=== PATIENT | male | born 1960 | race Caucasian/White ===

== ENCOUNTER 2022-11-18 21:54 | Emergency (ER) | payer OTHER, SELFPAY ==
[2022-11-18 21:54] VITALS: BP 90/50; PULSE 71; RESP 14; O2SAT 98; BMI 25.0
--- NOTE | 2022-11-18 22:01 | CT_ITS ---
PROCEDURE INFORMATION: Exam: CTA Neck With Contrast Exam date and time: 11/18/2022 10:42 PM Age: 62 years old Clinical indication: Other: AMS; Additional info: AMS, found down TECHNIQUE: Imaging protocol: Computed tomographic angiography of the neck with contrast. 3D rendering (Not supervised by radiologist): MIP and/or 3D reconstructed images were created by the technologist. Radiation optimization: All CT scans at this facility use at least one of these dose optimization techniques: automated exposure control; mA and/or kV adjustment per patient size (includes targeted exams where dose is matched to clinical indication); or iterative reconstruction. Contrast material: ISOVUE; Contrast volume: 100 ml; Contrast route: INTRAVENOUS (IV); REPORTING DATA: Count of CT and Cardiac NM exams in prior 12 months: This patient has received 0 known CTs and 0 known cardiac nuclear medicine studies in the 12 months prior to the current study. COMPARISON: CT CERVICAL SPINE WO CON 11/18/2022 10:38 PM FINDINGS: Right common carotid artery: Prominent calcific plaque in the right carotid bulb. No significant stenosis or occlusion. No dissection. Right internal carotid artery: Moderate calcific plaque in proximal right ICA, with mild less than 50% stenosis by NASCET criteria. No occlusion or dissection. Right external carotid artery: No occlusion or stenosis of the origin. Left common carotid artery: Mild calcific plaque in left carotid bulb. No significant stenosis or occlusion. No dissection. Left internal carotid artery: [id number] calcific plaque in proximal left ICA. No significant stenosis or occlusion. No dissection. Left external carotid artery: No occlusion or stenosis of the origin. Right vertebral artery: No stenosis. No dissection or occlusion. Left vertebral artery: No stenosis. No dissection or occlusion. Soft tissues: Normal. No significant soft tissue swelling. Bones/joints: No acute fracture. Lungs: Chronic emphysematous changes in the visualized upper lungs. IMPRESSION: 1. No significant stenosis, occlusion, or dissection. 2. Mild, less than 50% stenosis in proximal right ICA. REFERENCES: NASCET CRITERIA. The degree of stenosis in the cervical segment of the internal carotid artery is based on NASCET criteria. Normal is no stenosis. Mild is less than 50% stenosis. Moderate is 50-69% stenosis. Severe is 70% to 99% stenosis. Total occlusion is no detectable patent lumen.
--- NOTE | 2022-11-18 22:01 | CT_ITS ---
PROCEDURE INFORMATION: Exam: CTA Head With Contrast, Arteriography Exam date and time: 11/18/2022 10:42 PM Age: 62 years old Clinical indication: Other: AMS; Additional info: AMS, found down TECHNIQUE: Imaging protocol: Computed tomographic angiography of the head with contrast. Exam focused on the arteries. 3D rendering (Not supervised by radiologist): MIP and/or 3D reconstructed images were created by the technologist. Radiation optimization: All CT scans at this facility use at least one of these dose optimization techniques: automated exposure control; mA and/or kV adjustment per patient size (includes targeted exams where dose is matched to clinical indication); or iterative reconstruction. Contrast material: ISOVUE; Contrast volume: 100 ml; Contrast route: INTRAVENOUS (IV); REPORTING DATA: Count of CT and Cardiac NM exams in prior 12 months: This patient has received 0 known CTs and 0 known cardiac nuclear medicine studies in the 12 months prior to the current study. COMPARISON: CT HEAD/BRAIN WO CON 11/18/2022 10:38 PM FINDINGS: ANTERIOR CIRCULATION: Right internal carotid artery: Mild calcific plaque in right carotid siphon. No significant stenosis or occlusion. No aneurysm. Right middle cerebral artery: No occlusion or significant stenosis. No aneurysm. Right anterior cerebral artery: Hypoplastic right A1 segment, a normal anatomic variant. Otherwise unremarkable. No significant stenosis or occlusion. No aneurysm. Left internal carotid artery: Mild calcific plaque in the left carotid siphon. No significant stenosis or occlusion. No aneurysm. Left middle cerebral artery: No occlusion or significant stenosis. No aneurysm. Left anterior cerebral artery: No occlusion or significant stenosis. No aneurysm. POSTERIOR CIRCULATION: Right vertebral artery: No occlusion or significant stenosis. No aneurysm. Left vertebral artery: No occlusion or significant stenosis. No aneurysm. Basilar artery: No occlusion or significant stenosis. No aneurysm. Right posterior cerebral artery: No occlusion or significant stenosis. No aneurysm. Left posterior cerebral artery: No occlusion or significant stenosis. No aneurysm. Brain: No definite mass, mass effect, or midline shift. Cerebral ventricles: No ventriculomegaly. Bones/joints: Unremarkable. No acute fracture. Soft tissues: Unremarkable. IMPRESSION: 1. No acute intracranial abnormality identified. 2. No large vessel stenosis or occlusion.
--- NOTE | 2022-11-18 22:01 | CT_ITS ---
PROCEDURE INFORMATION: Exam: CT Cervical Spine Without Contrast Exam date and time: 11/18/2022 10:38 PM Age: 62 years old Clinical indication: Other: AMS; Additional info: AMS, found down TECHNIQUE: Imaging protocol: Computed tomography of the cervical spine without contrast. Radiation optimization: All CT scans at this facility use at least one of these dose optimization techniques: automated exposure control; mA and/or kV adjustment per patient size (includes targeted exams where dose is matched to clinical indication); or iterative reconstruction. REPORTING DATA: Count of CT and Cardiac NM exams in prior 12 months: This patient has received 0 known CTs and 0 known cardiac nuclear medicine studies in the 12 months prior to the current study. COMPARISON: [facility] CT CHEST W/O CONTRAST 12/11/2016 8:43 AM FINDINGS: Bones/joints: No acute fracture or subluxation. Mild chronic degenerative changes without severe spinal stenosis. Lungs: Lung apices are normal. Soft tissues: Unremarkable. IMPRESSION: No acute findings.
--- NOTE | 2022-11-18 22:01 | XR_ITS ---
PROCEDURE INFORMATION: Exam: XR Chest Exam date and time: 11/18/2022 10:41 PM Age: 62 years old Clinical indication: Other: AMS; Additional info: AMS, found down TECHNIQUE: Imaging protocol: Radiologic exam of the chest. Views: 1 view. COMPARISON: CR CXR1 CHEST-PORTABLE 12/15/2016 11:08 AM FINDINGS: Lungs: No consolidation, suspicious mass, or pulmonary edema. Stable small calcified granuloma in the mid left lung. Pleural spaces: Unremarkable. No pleural effusion. No pneumothorax. Heart/Mediastinum: No cardiomegaly. Bones/joints: Multiple old healed left rib fractures. No acute fracture. IMPRESSION: No acute findings.
--- NOTE | 2022-11-18 22:01 | CT_ITS ---
PROCEDURE INFORMATION: Exam: CT Head Without Contrast Exam date and time: 11/18/2022 10:38 PM Age: 62 years old Clinical indication: Injury or trauma; Altered mental status/memory loss; Additional info: AMS, found down TECHNIQUE: Imaging protocol: Computed tomography of the head without contrast. Radiation optimization: All CT scans at this facility use at least one of these dose optimization techniques: automated exposure control; mA and/or kV adjustment per patient size (includes targeted exams where dose is matched to clinical indication); or iterative reconstruction. REPORTING DATA: Count of CT and Cardiac NM exams in prior 12 months: This patient has received 0 known CTs and 0 known cardiac nuclear medicine studies in the 12 months prior to the current study. COMPARISON: CT HEAD W/O CONTRAST 12/10/2016 3:57 PM (images only; no report provided) FINDINGS: Brain: No acute intracranial hemorrhage, acute large territory infarct, or obvious mass lesion. Age appropriate diffuse cerebral volume loss. Chronic white matter changes, likely to be chronic small vessel ischemic changes. Old lacunar infarcts in the basal ganglia. Cerebral ventricles: No ventriculomegaly. Paranasal sinuses: Minimal mucosal thickening in the ethmoid air cells. No air-fluid levels. Mastoid air cells: Visualized mastoid air cells are well aerated. Bones/joints: Stable deformity of the nasal bones, consistent with old fracture. No acute fracture identified. Soft tissues: Unremarkable. IMPRESSION: No acute intracranial abnormality.
--- NOTE | 2022-11-18 22:02 | ECG_ITS ---
APPROVED REPORT Exam: Resting ECG HR:72 bpm ECG Measurements Heart Rate [address] 159 P 151 QRSd 82 QRS 15 QT 430 T 141 QTc 454 Conclusion ECTOPIC ATRIAL RHYTHM POSSIBLE LEFT ATRIAL ENLARGEMENT [-0.1mV P-WAVE IN V1/V2] LOW QRS VOLTAGE IN EXTREMITY LEADS [QRS DEFLECTION < 0.5 mV IN LIMB LEADS] ABNORMAL QRS-T ANGLE [QRS-T AXIS DIFFERENCE > 60] ABNORMAL ECG UNCONFIRMED REPORT Electronically signed by : Juan Alberto Casas MD 11/20/2022 16:04:39
[2022-11-18 22:12] LABS: Basophils # 0.1 K/mm3 (0-0.2); Basophils % 0.7 % (0.1-2.0); Eosinophils # 0.5 K/mm3 (0.0-0.4); Eosinophils % 6.1 % (0.1-12.0); Hematocrit 49.1 % (42.0-52.0); Hemoglobin 15.6 g/dL (14.1-18.0); Lymphocytes # 2.3 K/mm3 (0.7-4.5); Lymphocytes % 31.5 % (10-50); Mean Corpuscular HGB Conc 31.8 g/dL (31.8-35.4); Mean Corpuscular Hemoglobin 33.6 pg (27.0-31.2); Mean Corpuscular Volume 105.4 fl (80-94); Mean Platelet Volume 9.2 fl (7.4-10.4); Monocytes # 0.5 K/mm3 (0.1-1.0); Neutrophils % 54.7 % (37.0-80.0); Platelet Count 69 K/mm3 (142-424); Red Blood Count 4.65 M/mm3 (4.60-6.20); Red Cell Distribution Width 13.6 % (11.5-17.5); White Blood Count 7.3 K/mm3 (4.8-10.8)
[2022-11-18 22:16] VITALS: BP 90/50; PULSE 72; RESP 12; O2SAT 94
--- NOTE | 2022-11-18 22:18 | PC.NURSE ---
Unable to obtain oral temp, Patient refused rectal temp.
[2022-11-18 22:20] LABS: Alanine Aminotransferase 28 U/L (12-78); Albumin Level 3.9 g/dl (3.5-5.0); Albumin/Globulin Ratio 1.6 (1.1-1.8); Alkaline Phosphatase 35 U/L (38-126); Anion Gap 18.3 mEq/L (5-15); Aspartate Amino Transferase 83 U/L (17-59); Bilirubin,Total 0.6 mg/dl (0.2-1.3); Blood Urea Nitrogen 5 mg/dl (9-20); Calcium 8.8 mg/dl (8.4-10.2); Carbon Dioxide 20 mmol/L (22.0-30.0); Chloride 94 mmol/L (98-107); Creatinine Clearance Estimated 79 mL/min (50-200); Estimated Glomerular Filt Rate 76 ml/min (>60); GFR (African American) 92 ML/MIN (>60); Globulin 2.5 g/dL (1.3-3.2); Glucose 113 mg/dl (74-100); Potassium 4.3 mmoL/L (3.5-5.1); Sodium 128 mmol/L (136-145); Total Protein,Serum 6.4 g/dl (6.3-8.2)
--- NOTE | 2022-11-18 22:20 | PC.NURSE ---
bed bug found in patient medication bag. Patient was decontaminated, belongs placed in a plastic bag outside.
[2022-11-18 22:22] LABS: Acetaminophen < 10 ug/ml (10-30); Ethyl Alcohol 195 mg/dl (0-10); Lactic Acid 2.7 mmol/L (0.7-2.1); Salicylate < 1.0 mg/dL (2.0-20.0)
[2022-11-18 22:27] LABS: VBG Base Excess -4.1 mmol/L (-2.4-2.3); VBG Oxygen Saturation 91.8 % (50-70); VBG PCO2 43.6 mmol/L (35-51); VBG PH 7.32 mmol/L (7.31-7.41); VBG PO2 69.2 mmol/L (28-40); VBG Total CO2 23.3 mmol/L (23-27)
[2022-11-18 22:30] VITALS: BP 65/40; PULSE 62; RESP 18; O2SAT 100
[2022-11-18 23:00] VITALS: BP 94/56; PULSE 74; RESP 13; O2SAT 98
--- NOTE | 2022-11-18 23:24 | HMH.EDGENADL ---
Discharge Plan Disposition Patient Disposition: Home, Self-Care Condition: Good Prescriptions Prescriptions: No Action nicotine [Nicoderm CQ] 21 mg/24 hr patch 24 hour 1 patch TRANSDERMA DAILY hydrocortisone 1 % cream 1 applic TOPICAL BID Qty: 1 0RF Ventolin HFA 90 mcg/actuation HFA aerosol inhaler 1 puff INHALATION Q6H PRN (Reason: shortness of breath) Qty: 18 2RF ibuprofen 400 mg tablet 400 mg PO QID PRN (Reason: pain) Qty: 90 0RF sumatriptan succinate [Imitrex] 100 mg tablet 100 mg PO Q2H PRN (Reason: migraine headache) Qty: 9 2RF tramadol 50 mg tablet 50 mg PO Q8H Qty: 90 0RF cephalexin [Keflex] 500 mg capsule 500 mg PO Q12H Qty: 60 0RF Breo Ellipta 100-25 mcg/dose blister with device 1 inh INHALATION DAILY Qty: 28 2RF prednisone 10 mg tablet 10 mg PO BID Qty: 20 0RF lisinopril 10 mg tablet 10 mg PO QDAY Qty: 90 0RF methylprednisolone [Medrol (Elmo)] 4 MG Tab.Ds.Pk 4 mg PO DIRECTED Qty: 1 0RF Referrals Follow up/Referrals: Provider,Referral, MD [Primary Care Provider] - See instructions Activity Restrictions/Add. Instructions Additional Instructions/Restrictions: You were evaluated in the emergency department today. Please refrain from drinking alcohol. Follow-up with your primary care provider over the next 3 days for reassessment. You have incidental findings of carotid stenosis on your CT scan, which means narrowing of the artery leading up to your brain. Please follow-up with your primary care provider for this. Return to the emergency department for any new or worsening symptoms. Clinical Impressions Clinical Impression: Alcohol intoxication, Carotid artery stenosis, AMS (altered mental status) Instructions Patient Instructions: DI for Alcohol Use Disorder Discharge ED Provider: Belen Mccarthy General Adult HPI General Chief complaint: Overdose Stated complaint: ams Time Seen by Provider: 11/18/22 21:56 Mode of Arrival: EMS Source of Information: Patient and EMS Limitations: Altered Mental Status Description of Symptoms (Recalled from ER Triage Doc. by RN): Patient was found non-responsive on a porch. ETOH and pills reported by bystanders. History of Present Illness HPI narrative: This patient is a 62-year-old male with a history of alcohol abuse presenting to the emergency department for evaluation with concern for being found unresponsive on a porch. EMS reports that he was responsive to verbal stimuli in route, but altered and unable to answer questions. He smells of alcohol and was found with medications by him. They note his blood pressure was soft in route but otherwise he has been stable. Patient is unable to provide any further history given altered mental status. EMS reports he was given Narcan without notable improvement in route. Related Data Home Medications Medication Instructions Recorded Confirmed nicotine 21 mg/24 hr daily 1 patch transdermal DAILY 11/19/17 transdermal patch (Nicoderm CQ) Previous Rx's Medication Instructions Recorded methylprednisolone 4 mg tablets in 4 mg PO DIRECTED ##1 11/06/17 a dose pack (Medrol (Elmo)) albuterol sulfate 90 mcg/actuation 1 puff inhalation Q6H PRN 11/19/17 aerosol inhaler (Ventolin HFA) shortness of breath #18 grams cephalexin 500 mg capsule (Keflex) 500 mg PO Q12H #60 caps 11/19/17 fluticasone furoate 100 1 inh inhalation DAILY #28 ea 11/19/17 mcg-vilanterol 25 mcg/dose inhalation powder (Breo Ellipta) hydrocortisone 1 % topical cream 1 applic topical BID #1 tube 11/19/17 ibuprofen 400 mg tablet 400 mg PO QID PRN pain #90 tabs 11/19/17 prednisone 10 mg tablet 10 mg PO BID #20 tabs 11/19/17 sumatriptan succinate 100 mg 100 mg PO Q2H PRN migraine 11/19/17 tablet (Imitrex) headache #9 tabs tramadol 50 mg tablet 50 mg PO Q8H #90 tabs 11/19/17 lisinopril 10 mg tablet 10 mg PO QDAY htn #90 tabs 11/22/17 Allergies Allergy/AdvReac Type Severity Reaction St
[2022-11-18 23:50] VITALS: BP 105/75; PULSE 71; RESP 14; TEMP 36.7; O2SAT 98
== END 2022-11-18 23:51 | disposition home or self-care (01) ==
PROVIDERS: Emergency Provider Emergency Medicine
DX: R41.82 Altered mental status, unspecified (principal); F10.120 Alcohol abuse with intoxication, uncomplicated; I65.29 Occlusion and stenosis of unspecified carotid artery; F17.210 Nicotine dependence, cigarettes, uncomplicated
CPT/HCPCS: 70450; 70496; 70498; 71045; 72125; 80053; 80320; 80329; 82803; 83605; 85025; 93005; 96360; 99285; G0480; Q9967

== ENCOUNTER 2023-04-15 20:21 | Outpatient (CLI) | payer BC, SELFPAY ==
[2023-04-15 20:47] LABS: Basophils % 0.6 % (0.1-2.0); Eosinophils # 0.2 K/mm3 (0.0-0.4); Eosinophils % 4.1 % (0.1-12.0); Hematocrit 53.1 % (42.0-52.0); Hemoglobin 17.7 g/dL (14.1-18.0); Lymphocytes # 1.1 K/mm3 (0.7-4.5); Lymphocytes % 23.8 % (10-50); Mean Corpuscular HGB Conc 33.3 g/dL (31.8-35.4); Mean Corpuscular Hemoglobin 34.5 pg (27.0-31.2); Mean Corpuscular Volume 103.7 fl (80-94); Monocytes # 0.4 K/mm3 (0.1-1.0); Monocytes % 8.5 % (1.7-9.3); Neutrophils # 2.8 K/mm3 (1.8-7.8); Platelet Count 88 K/mm3 (142-424); Red Blood Count 5.13 M/mm3 (4.60-6.20); Red Cell Distribution Width 13.4 % (11.5-17.5); White Blood Count 4.4 K/mm3 (4.8-10.8)
[2023-04-15 20:52] LABS: Alanine Aminotransferase 18 U/L (12-78); Albumin Level 5.1 g/dl (3.5-5.0); Albumin/Globulin Ratio 1.4 (1.1-1.8); Alkaline Phosphatase 79 U/L (38-126); Anion Gap 16.5 mEq/L (5-15); Aspartate Amino Transferase 50 U/L (17-59); Bilirubin,Total 1.6 mg/dl (0.2-1.3); Blood Urea Nitrogen 4 mg/dl (9-20); Calcium 9.9 mg/dl (8.4-10.2); Carbon Dioxide 28 mmol/L (22.0-30.0); Chloride 93 mmol/L (98-107); Estimated Glomerular Filt Rate 114 ml/min (>60); GFR (African American) 138 ML/MIN (>60); Globulin 3.7 g/dL (1.3-3.2); Glucose 109 mg/dl (74-100); Potassium 4.5 mmoL/L (3.5-5.1); Sodium 133 mmol/L (136-145); Total Protein,Serum 8.8 g/dl (6.3-8.2)
[2023-04-15 21:58] LABS: Vitamin B12 839 pg/mL (239-931)
[2023-04-15 21:59] LABS: Folate 4.22 ng/mL
[2023-04-15 22:22] LABS: Ethyl Alcohol < 10 mg/dl (0-10)
[2023-04-16 00:22] LABS: Hemoglobin A1C 5.1 % (4.0-6.0)
[2023-04-16 02:19] LABS: Ferritin 688 ng/ml (17.9-464)
[2023-04-16 02:38] LABS: Creatinine,Urine Random 103 mg/dL (Not Estab.); Microalbumin/Creatinine Ratio 29.4
[2023-04-17 10:56] LABS: Transferrin 270 mg/dL (177-329)
[2023-04-17 20:38] LABS: Peripheral Smear Review Scanned Result
== END 2023-04-15 23:59 ==
PROVIDERS: PCP Internal Medicine; Visit Provider Internal Medicine
DX: E11.9 Type 2 diabetes mellitus without complications (principal); E78.5 Hyperlipidemia, unspecified; R53.83 Other fatigue; Z79.899 Other long term (current) drug therapy
CPT/HCPCS: 80053; 82043; 82570; 82607; 82728; 82746; 83036; 84466; 85025

== ENCOUNTER 2023-04-19 13:28 | Emergency (ER) | payer BC, SELFPAY ==
[2023-04-19 13:28] VITALS: BP 110/73; PULSE 86; RESP 14; TEMP 36.7; O2SAT 95; BMI 24.7
--- NOTE | 2023-04-19 13:32 | ECG_ITS ---
APPROVED REPORT Exam: Resting ECG HR:83 bpm ECG Measurements Heart Rate 83 AXES ND 170 P 75 QRSd 82 QRS -56 QT 378 T 75 QTc 417 Conclusion SINUS RHYTHM LEFT AXIS DEVIATION [QRS AXIS < -30] Late R wave progression ABNORMAL ECG UNCONFIRMED REPORT Electronically signed by : Juan Alberto Casas MD 04/19/2023 17:57:11
--- NOTE | 2023-04-19 13:55 | XR_ITS ---
FINAL REPORT TECHNIQUE: Single view chest CLINICAL HISTORY: found unresponsive FINDINGS: A single view of the chest was obtained. The heart and mediastinum are within normal limits. The lungs are clear. There is no pneumothorax. Osseous structures demonstrate multiple chronic left posterior rib fractures. IMPRESSION: No acute cardiopulmonary process. Reviewed, Interpreted and Dictated by Christopher Henao III, MD Transcribed by Chula Us Authenticated and [facility]
--- NOTE | 2023-04-19 13:58 | PC.NURSE ---
RESP NOTIFIED OF VBG
[2023-04-19 14:01] VITALS: BP 99/68; PULSE 78; RESP 20; O2SAT 96
[2023-04-19] MEDS: RINGERS SOLUTION,LACTATED 500 ML 999 ML IV (14:02)
[2023-04-19 14:05] LABS: VBG Oxygen Saturation 98.9 % (50-70); VBG PCO2 50.7 mmol/L (35-51); VBG PH 7.33 mmol/L (7.31-7.41); VBG PO2 146.5 mmol/L (28-40); VBG Total CO2 27.5 mmol/L (23-27)
--- NOTE | 2023-04-19 14:10 | PC.NURSE ---
pt given a meal tray
[2023-04-19 14:13] LABS: Alanine Aminotransferase 19 U/L (12-78); Albumin Level 3.9 g/dl (3.5-5.0); Albumin/Globulin Ratio 1.4 (1.1-1.8); Alkaline Phosphatase 58 U/L (38-126); Anion Gap 14.2 mEq/L (5-15); Aspartate Amino Transferase 55 U/L (17-59); Bilirubin,Total 0.8 mg/dl (0.2-1.3); Blood Urea Nitrogen 4 mg/dl (9-20); Calcium 8.6 mg/dl (8.4-10.2); Carbon Dioxide 24 mmol/L (22.0-30.0); Chloride 100 mmol/L (98-107); Creatinine Clearance Estimated 78 mL/min (50-200); Estimated Glomerular Filt Rate 98 ml/min (>60); GFR (African American) 119 ML/MIN (>60); Globulin 2.8 g/dL (1.3-3.2); Glucose 148 mg/dl (74-100); Potassium 4.2 mmoL/L (3.5-5.1); Sodium 134 mmol/L (136-145); Total Protein,Serum 6.7 g/dl (6.3-8.2)
[2023-04-19 14:24] LABS: Basophils % 0.7 % (0.1-2.0); Eosinophils # 0.4 K/mm3 (0.0-0.4); Eosinophils % 7.5 % (0.1-12.0); Hematocrit 49.8 % (42.0-52.0); Hemoglobin 16.9 g/dL (14.1-18.0); Lymphocytes # 2.2 K/mm3 (0.7-4.5); Lymphocytes % 41.8 % (10-50); Mean Corpuscular HGB Conc 33.9 g/dL (31.8-35.4); Mean Corpuscular Hemoglobin 34.8 pg (27.0-31.2); Mean Corpuscular Volume 102.7 fl (80-94); Monocytes # 0.4 K/mm3 (0.1-1.0); Monocytes % 7.3 % (1.7-9.3); Neutrophils # 2.2 K/mm3 (1.8-7.8); Neutrophils % 42.6 % (37.0-80.0); Platelet Count 59 K/mm3 (142-424); Red Blood Count 4.85 M/mm3 (4.60-6.20); Red Cell Distribution Width 13.7 % (11.5-17.5); White Blood Count 5.2 K/mm3 (4.8-10.8)
[2023-04-19 14:30] VITALS: BP 112/70; PULSE 92; RESP 20; O2SAT 95
[2023-04-19 14:34] LABS: Troponin I < 0.01 ng/ml (0.00-0.034)
--- NOTE | 2023-04-19 14:40 | HMH.EDGENADL ---
Discharge Plan Disposition Patient Disposition: Home, Self-Care Condition: Good Prescriptions Prescriptions: No Action Ventolin HFA 90 mcg/actuation HFA aerosol inhaler 1 puff INHALATION Q6H PRN (Reason: shortness of breath) Qty: 18 2RF aspirin 81 mg tablet,chewable 81 mg PO DAILY 90 Days Qty: 90 4RF carvedilol 25 mg tablet 25 mg PO BID 90 Days Qty: 180 4RF losartan 50 mg tablet 50 mg PO BID 90 Days Qty: 180 4RF budesonide-formoterol [Symbicort] 160-4.5 mcg/actuation HFA aerosol inhaler 1 inh inhalation BID Qty: 10.2 4RF Referrals Follow up/Referrals: Diego Kennedy DO [Primary Care Provider] - See instructions Activity Restrictions/Add. Instructions Additional Instructions/Restrictions: You have been evaluated in the ED for your complaints. You may follow-up with your PCP in the next 3 to 5 days. Please return to ED for any new or worsening symptoms. Clinical Impressions Clinical Impression: Unresponsive episode Discharge ED Provider: Willie Snyder Adult HPI General Chief complaint: Recheck/Abnormal Lab/Rx Stated complaint: hypotension Time Seen by Provider: 04/19/23 13:37 Mode of Arrival: EMS Source of Information: Patient and EMS Limitations: No Limitations Description of Symptoms (Recalled from ER Triage Doc. by RN): pt presents to ED via EMS for hypotentsion and unresponsiveness. EMS was called to scene due to pt not responding. pt reports he was drinking last night and has only had one beer today. per EMS report when they went to move pt he awoke and become responsive. History of Present Illness HPI narrative: 62-year-old male with past medical history significant for alcohol use disorder, hypertension, COPD, carotid artery stenosis presents today for evaluation concerning unresponsiveness. EMS was called to patient's home secondary to him being unresponsive. They noted that patient was difficult to arouse even with sternal rub and was noted to have a blood pressure in the 80s/50s. They report that he was also pale at the time. They state that once patient was moved to the stretcher he immediately woke up and was speaking appropriately and was in no acute distress. Patient states that he drank two 24 ounce beers last night and has also been drinking this morning. He denies having any fevers, chills, chest pain, shortness of breath, nausea, vomiting, abdominal pain, dysuria, hematuria or any other associated symptoms at this time. Related Data Previous Rx's Medication Instructions Recorded albuterol sulfate 90 mcg/actuation 1 puff inhalation Q6H PRN 04/15/23 aerosol inhaler (Ventolin HFA) shortness of breath #18 grams aspirin 81 mg chewable tablet 81 mg PO DAILY 90 days #90 tabs 04/15/23 carvedilol 25 mg tablet 25 mg PO BID 90 days #180 tabs 04/15/23 losartan 50 mg tablet 50 mg PO BID 90 days #180 tabs 04/15/23 budesonide-formoterol HFA 160 1 inh inhalation BID #10.2 grams 04/16/23 mcg-4.5 mcg/actuation aerosol inhaler (Symbicort) Allergies Allergy/AdvReac Type Severity Reaction Status Date / Time cephalexin [From KEFLEX] Allergy Mild Verified 04/15/23 11:15 penicillin G [PENICILLIN G] Allergy Mild Verified 04/15/23 11:15 [facility] Disclaimer: The information contained in this section may have been updated after the patient was seen, as this information can be updated by other users. Family History (Updated 04/15/23 @ 11:23 by Nicolette Bledsoe CMA) Other Cancer Heart attack Social History Smoking Status: Current every day smoker tobacco type: cigarettes packs per day: 1 second hand exposure: Yes alcohol intake: current substance use type: denies use current occupational status: unemployed Travel in the last 8 weeks: None housing: house ROS Obtained: Yes All systems reviewed & no additional complaints except as documented Physical Exam General General appearance: alert and in no apparent distress Head Head exam: atraumatic and normocephalic Eye Eye exam: Present normal appearance, PERRL and EOMI ENT ENT exam: Present normal oropharynx and mucous membranes moist Neck Neck exam: Present full ROM; Absent meningismus Respiratory Respiratory exam: Absent respiratory distress, wheezes, stridor or accessory muscle use Cardiovascular Cardiovascular exam: Present normal rhythm Abdominal Exam Abdominal exam: Present soft; Absent distention, tenderness, guarding, rebound or rigidity Neurological Exam Neurological exam: Present alert, oriented X3 and CN II-XII intact; Absent motor sensory deficit Psychiatric Psychiatric exam: Present normal affect and normal mood Skin Skin exam: Present warm and dry Medical Decision Making Medical Records Medical records reviewed: Yes I reviewed the patient's medical records. [place] Inquiry Pt receiving controlled substance: No [place] was queried for this patient: No Vital Signs: 04/19/23 13:28 04/19/23 14:01 Temperature 98.0 F Temperature Source Oral Pulse Rate 78 Pulse Rate [Left Radial] 86 Respiratory Rate 14 20 Blood Pressure 99/68 L Blood Pressure [Right Arm] 110/73 Blood Pressure Mean 73 Blood Pressure Mean [Right Arm] 85 02 Sat by Pulse Oximetry 95 96 Oxygen Delivery Method Room Air Lab Data Lab Results 04/19/23 13:30: WBC 5.2, RBC 4.85, Hgb 16.9, Hct 49.8, MCV 102.7 H, MCH 34.8 H, MCHC 33.9, RDW 13.7, Plt Count 59 L, MPV 8.0, Neut % (Auto) 42.6, Lymph % (Auto) 41.8, [place] % (Auto) 7.3, Eos % (Auto) 7.5, Baso % (Auto) 0.7, Neut # (Auto) 2.2, Lymph # (Auto) 2.2, [place] # (Auto) 0.4, Eos # (Auto) 0.4, Baso # (Auto) 0.0, Sodium 134 L, Potassium 4.2, Chloride 100, Carbon Dioxide 24, Anion Gap 14.2, BUN 4 L, Creatinine 0.80, Estimated Creat Clear 78, Estimated GFR 98, Est GFR ( Amer) 119, Glucose 148 H, Calcium 8.6, Total Bilirubin 0.8, AST 55, ALT 19, Alkaline Phosphatase 58, Troponin I < 0.01, Total Protein 6.7, Albumin 3.9, Globulin 2.8, Albumin/Globulin Ratio 1.4 04/19/23 13:55: VBG pH 7.33, VBG pCO2 50.7, VBG pO2 146.5 H, VBG HCO3 26.0, VBG Total CO2 27.5 H, VBG O2 Saturation 98.9 H, VBG Base Excess 0.0 04/19/23 13:30 04/19/23 13:30 Orders (Tests/Meds): ED MEDICATIONS Discontinued Medications Generic Name Dose Route Start Last Admin Trade Name Freq PRN Reason Stop Dose Admin Lactated Ringer's 500 mls @ 999 mls/hr 04/19/23 13:56 04/19/23 14:02 Lactated Ringer's 500ml IV 04/19/23 14:26 999 mls/hr .Q31M ONE Administration ORDERS Category Date Time Status CXR --portable [XR chest portable] Stat Exams 04/19/23 13:55 Taken CBC [Complete Blood Count Auto Diff] Stat Lab 04/19/23 13:30 Completed CMP [Comprehensive Metabolic Panel] Stat Lab 04/19/23 13:30 Completed Troponin I Q3H Lab 04/19/23 17:00 Ordered Troponin I Q3H Lab 04/19/23 20:00 Ordered Troponin I Stat Lab 04/19/23 13:30 Completed VBG [Venous Blood Gas] Stat RT 04/19/23 13:55 Completed ECG Data Tracing #1: I reviewed this ECG and interpreted as documented below: EKG was personally interpreted by me. Normal sinus rhythm with a rate of [address] elevations are noted. HEART Score History (anamnesis): Slightly suspicious ECG: Normal Age: 45-65 years Risk factors: 1-2 risk factors Troponin: </= normal limit HEART Score: 2 Medical Decision Narrative: 62-year-old male with past medical history significant for alcohol use disorder, hypertension, COPD, carotid artery stenosis presents today for evaluation concerning unresponsiveness. EMS was called to patient's home secondary to him being unresponsive. They noted that patient was difficult to arouse even with sternal rub and was noted to have a blood pressure in the 80s/50s. They report that he was also pale at the time. They state that once patient was moved to the stretcher he immediately woke up and was speaking appropriately and was in no acute distress. Patient states that he drank two 24 ounce beers last night and has also been drinking this morning. On assessment, he was hemodynamically stable and in no acute distress. Afebrile. He was alert and oriented to person place time and situation. Did not appear to be clinically intoxicated. Abdomen was soft nondistended nontender to palpation. Chest clear to auscultation bilaterally. Other physical exam findings unremarkable. Differential diagnoses include not limited to alcohol intoxication, ACS, hypercapnia, electrolyte disturbance, among others. CBC today with no elevation in WBC. VBG with pH of 7.33, pCO2 of 50.7. CMP was nonactionable. No transaminitis. First troponin unremarkable. Chest ray was personally interpreted by me and was unremarkable for any acute cardiopulmonary disease process. On reassessment the patient shelbie medically stable and in no acute distress. Tolerating oral intake without difficulty. I discussed with patient his ED workup results and current plan to discharge home with supportive care measures. Provided him with strict return ED precautions and instructions concerning PCP follow-up. Also discussed with patient concerning possible alcohol cessation if desired. He verbalized understanding agree with plan. Subsequently discharged home medically stable and in no acute distress. Critical Care Critical Care Time Critical Care Time: No
[2023-04-19 15:12] VITALS: BP 112/70; PULSE 91; RESP 20; TEMP 36.7; O2SAT 97
== END 2023-04-19 15:18 | disposition home or self-care (01) ==
PROVIDERS: Emergency Provider Emergency Medicine; PCP Internal Medicine
DX: I95.89 Other hypotension (principal); F10.99 Alcohol use, unspecified with unspecified alcohol-induced disorder; F17.210 Nicotine dependence, cigarettes, uncomplicated; J44.9 Chronic obstructive pulmonary disease, unspecified; I65.29 Occlusion and stenosis of unspecified carotid artery; I10 Essential (primary) hypertension
CPT/HCPCS: 71045; 80053; 82803; 84484; 85025; 93005; 99284

== ENCOUNTER 2023-05-24 17:47 | Observation (INO) | payer BC, SELFPAY ==
[2023-05-24 17:48] VITALS: BP 132/86; PULSE 64; RESP 18; TEMP 37.1; O2SAT 100; BMI 24.4
[2023-05-24 18:07] VITALS: BP 116/61; BP 84/63; PULSE 72; PULSE 75
--- NOTE | 2023-05-24 18:08 | ECG_ITS ---
APPROVED REPORT Exam: Resting ECG HR:67 bpm ECG Measurements Heart Rate 67 AXES ID 159 P 70 QRSd 90 QRS -24 QT 436 T 61 QTc 452 Conclusion SINUS RHYTHM BORDERLINE LEFT AXIS DEVIATION [QRS AXIS < -20] BORDERLINE ECG UNCONFIRMED REPORT Electronically signed by : Adrian Marin, 05/24/2023 22:52:43
--- NOTE | 2023-05-24 18:14 | XR_ITS ---
PROCEDURE INFORMATION: Exam: XR Chest Exam date and time: 05/24/2023 6:18 PM Age: 62 years old Clinical indication: Patient HX: Patient says he has been passing out every time he stands upright. This started last Wednesday. Dyspnea, smoker. TECHNIQUE: Imaging protocol: Radiologic exam of the chest. Views: 1 view. COMPARISON: CR XR CHEST PORTABLE 04/19/2023 2:07 PM FINDINGS: Lungs: Unchanged left midlung calcified granuloma. No acute pulmonary opacities. Pleural spaces: Normal. No pleural effusion. No pneumothorax. Heart/Mediastinum: Normal. No cardiomegaly. Vasculature: Moderate atherosclerotic plaque in the thoracic aorta. Bones/joints: Unchanged multiple left rib fractures. IMPRESSION: No acute findings.
[2023-05-24 18:16] VITALS: BP 114/64; PULSE 77
--- NOTE | 2023-05-24 18:16 | ED_ITS ---
Discharge Plan Disposition Patient Disposition: Admitted Prescriptions Prescriptions: No Action Ventolin HFA 90 mcg/actuation HFA aerosol inhaler 1 puff INHALATION Q6H PRN (Reason: shortness of breath) Qty: 18 2RF aspirin 81 mg tablet,chewable 81 mg PO DAILY 90 Days Qty: 90 4RF carvedilol 25 mg tablet 25 mg PO BID 90 Days Qty: 180 4RF losartan 50 mg tablet 50 mg PO BID 90 Days Qty: 180 4RF budesonide-formoterol [Symbicort] 160-4.5 mcg/actuation HFA aerosol inhaler 1 inh inhalation BID Qty: 10.2 4RF Referrals Follow up/Referrals: Diego Kennedy DO [Primary Care Provider] - See instructions Clinical Impressions Clinical Impression: Generalized weakness, Chronic alcoholism, Near syncope, Acute hyponatremia, Orthostatic hypotension Instructions Patient Instructions: DI for Syncope in Adults (Fainting), DI for Syncope in Children (Fainting) Discharge ED Provider: [facility] HPI General Chief complaint: Syncope Stated complaint: passing out, falling Time Seen by Provider: 05/24/23 18:06 Mode of Arrival: Wheelchair Source of Information: Patient Limitations: No Limitations Description of Symptoms (Recalled from ER Triage Doc. by RN): Patient reports passing out three times today. States he has been passing out since Wednesday. States anytime he gets up he gets dizzy. Also states that he drinks a 12 pack of beer a day and has been unable to make it to the refrigerator since Wednesday. History of Present Illness HPI narrative: Patient is a 62-year-old male presenting today with multiple near syncopal episodes. States that since Wednesday he has been profoundly weak to the point where he cannot get up. States that he has not had any actual loss of consciousness and upon trying to stand he simply falls down due to the weakness in his lower extremities. Denies any inability to move his legs or any sudden change in this but states this has been progressively worsening. He drinks at least a 12 pack of beer daily denies any other alcohol use or abrupt discontinuation of this. However upon being this week he states that he has had to crawl to the refrigerator and he has been drinking less over the last several days and denies any withdrawal symptoms. Denies any chest pain shortness of breath fevers chills cough nausea vomiting or any other symptoms. States that he has high blood pressure but denies any other significant past medical history. Related Data Previous Rx's Medication Instructions Recorded albuterol sulfate 90 mcg/actuation 1 puff inhalation Q6H PRN 04/15/23 aerosol inhaler (Ventolin HFA) shortness of breath #18 grams aspirin 81 mg chewable tablet 81 mg PO DAILY 90 days #90 tabs 04/15/23 carvedilol 25 mg tablet 25 mg PO BID 90 days #180 tabs 04/15/23 losartan 50 mg tablet 50 mg PO BID 90 days #180 tabs 04/15/23 budesonide-formoterol HFA 160 1 inh inhalation BID #10.2 grams 04/16/23 mcg-4.5 mcg/actuation aerosol inhaler (Symbicort) Allergies Allergy/AdvReac Type Severity Reaction Status Date / Time cephalexin [From KEFLEX] Allergy Mild Verified 04/15/23 11:15 penicillin G [PENICILLIN G] Allergy Mild Verified 04/15/23 11:15 [facility] Disclaimer: The information contained in this section may have been updated after the patient was seen, as this information can be updated by other users. Family History (Updated 04/15/23 @ 11:23 by Nicolette Bledsoe CMA) Other Cancer Heart attack Social History Smoking Status: Current every day smoker tobacco type: cigarettes packs per day: 1 second hand exposure: Yes alcohol intake: current substance use type: denies use current occupational status: unemployed Travel in the last 8 weeks: None housing: house ROS Obtained: Yes All systems reviewed & no additional complaints except as documented Physical Exam General General appearance: alert and in no apparent distress Chest Chest inspection: Present normal inspection and symmetric chest wall rise Respiratory Respiratory exam: Present normal lung sounds bilaterally; Absent respiratory distress Cardiovascular Cardiovascular exam: Present regular rate and normal rhythm Abdominal Exam Abdominal exam: Present soft; Absent distention or tenderness Neurological Exam Neurological exam: Present alert, oriented X3 and CN II-XII intact; Absent motor sensory deficit Psychiatric Psychiatric exam: Present other (No evidence of any alcohol withdrawal right now) Medical Decision Making Florencio Inquiry Pt receiving controlled substance: No Vital Signs: 05/24/23 17:48 05/24/23 18:07 05/24/23 18:16 Temperature 98.7 F Temperature Source Oral Pulse Rate [Left] 77 Pulse Rate [Orthostatic Sitting Left] 72 Pulse Rate [Orthostatic Standing Left] 75 Pulse Rate [Radial] 64 Respiratory Rate 18 Blood Pressure [Orthostatic Lying Right Arm] 114/64 Blood Pressure [Orthostatic Sitting Right Arm] 116/61 Blood Pressure [Orthostatic Standing Right Arm] 84/63 L Blood Pressure [Right Arm] 132/86 Blood Pressure Mean [Right Arm] 101 Blood Pressure Source [Right Arm] Automatic Cuff Blood Pressure Position [Right Arm] Sitting 02 Sat by Pulse Oximetry 100 Oxygen Delivery Method Room Air Lab Data Lab results reviewed: Yes I reviewed the patient's lab results. Lab Results 05/24/23 18:01: WBC 6.5, RBC 5.42, Hgb 19.1 H, Hct 58.2 H, MCV 107.4 H, MCH 35.3 H, MCHC 32.8, RDW 14.7, Plt Count 39 L*, MPV 10.2, Neut % (Auto) 74.8, Lymph % (Auto) 14.9, [place] % (Auto) 6.6, Eos % (Auto) 2.7, Baso % (Auto) 1.2, Neut # (Auto) 4.8, Lymph # (Auto) 1.0, [place] # (Auto) 0.4, Eos # (Auto) 0.2, Baso # (Auto) 0.1, PT 12.6 H, INR 1.18 H, Sodium 127 L, Potassium 3.8, Chloride 92 L, Carbon Dioxide 28, Anion Gap 10.8, BUN 6 L, Creatinine 0.70, Estimated Creat Clear 77, Estimated GFR 114, Est GFR ( Amer) 138, Glucose 99, Calcium 9.3, Phosphorus 3.4, Magnesium 1.7, Total Bilirubin 1.6 H, AST 71 H, ALT 36, Alkaline Phosphatase 58, Total Creatine Kinase 65, Troponin I < 0.01, NT-Pro-B Natriuret Pep 473 H, Total Protein 7.4, Albumin 4.4, Globulin 3.0, Albumin/Globulin Ratio 1.5 05/24/23 18:01 05/24/23 18:01 Orders (Tests/Meds): ED MEDICATIONS Discontinued Medications Generic Name Dose Route Start Last Admin Trade Name Freq PRN Reason Stop Dose Admin Lactated Ringer's 1,000 mls @ 999 mls/hr 05/24/23 18:15 05/24/23 18:21 Lactated Ringer's 1000 Ml Bag IV 05/24/23 19:15 999 mls/hr .Q1H1M VARGAS Administration ORDERS Category Date Time Status CXR --portable [XR chest portable] Stat Exams 05/24/23 18:14 Completed BNP [Brain Natriuretic Peptide] Stat Lab 05/24/23 18:01 Completed CBC w/Auto Diff [Complete Blood Count Auto Diff] Stat Lab 05/24/23 18:01 Completed CK [Creatine Kinase] Stat Lab 05/24/23 18:01 Completed CMP [Comprehensive Metabolic Panel] Stat Lab 05/24/23 18:01 Completed Magnesium Stat Lab 05/24/23 18:01 Completed PT INR [Prothrombin Time INR] Stat Lab 05/24/23 18:01 Completed Phosphorous Stat Lab 05/24/23 18:01 Completed Trop I [Troponin I] Stat Lab 05/24/23 18:01 Completed Troponin I Q3H Lab 05/24/23 21:15 Ordered Troponin I Q3H Lab 05/25/23 00:15 Ordered ECG Data Tracing #1: I reviewed this ECG and interpreted as documented below: Ventricular rate of 67 sinus rhythm left axis deviation no acute ischemic changes or significant conduction abnormalities Medical Decision Narrative: Patient is a 62-year-old chronic alcoholic who presents today with generalized weakness and near syncopal episodes. Differential includes profound electrolyte abnormalities such as hypokalemia hypomagnesemia hypophosphatemia renal insufficiency kidney failure, liver injury, dehydration, orthostatic hypotension etc. Will give IV fluids check electrolytes and basic labs and reassess. He has a nonfocal neurologic exam for me. Does not have any specific or focal musculoskeletal weakness. I did attempt to stand him and walk him and he got very shaky upon being able to stand but he was able to stand had good proximal strength and distal strength in the bilateral lower extremities but felt very lightheaded upon standing and stated that he felt like he was in a pass out which is consistent with orthostasis. I will reassess after his initial workup is complete. Reassessment 743 patient did have profound orthostatic hypotension on objective measurement with systolic blood pressure dropping to 80 upon standing and very symptomatic again almost passing out with this. He will need to be admitted for IV fluids until the symptoms improve. He did feel somewhat better after his first liter of fluids. Sodium severely depressed at 127. He has no [employer] symptoms of abnormality no indication for hypertonic saline. I suspect this is primarily beer [place] ben[place] from his chronic alcoholism and decree solute intake from not having a normal diet. Does have also chronic thrombocytopenia and other evidence of probable advanced fibrosis or cirrhosis. I spoke with Dylan with hospital medicine who agreed to admit the patient for further evaluation and management. Currently he has a CIWA score of 0 no evidence of any alcohol withdrawal. Critical Care Critical Care Time Critical Care Time: Yes Attestation: On 05/24/23, the high probability of a clinically significant, sudden or life threatening deterioration of the following system(s) required my full and direct attention, intervention and personal management. The time I documented below is in addition to time spent performing reported procedures but includes the following listed in this critical care notation. Total Time Total Critical Care Time: 35
[2023-05-24] MEDS: LACTATED RINGERS 1000ML 1,000 ML 999 ML IV (18:21)
[2023-05-24 18:34] LABS: Chloride 92 mmol/L (98-107); INR 1.18 (0.9-1.1); Potassium 3.8 mmoL/L (3.5-5.1); Prothrombin Time 12.6 seconds (10.1-12.5); Sodium 127 mmol/L (136-145)
[2023-05-24 18:37] LABS: Alanine Aminotransferase 36 U/L (12-78); Albumin Level 4.4 g/dl (3.5-5.0); Albumin/Globulin Ratio 1.5 (1.1-1.8); Alkaline Phosphatase 58 U/L (38-126); Anion Gap 10.8 mEq/L (5-15); Aspartate Amino Transferase 71 U/L (17-59); Bilirubin,Total 1.6 mg/dl (0.2-1.3); Blood Urea Nitrogen 6 mg/dl (9-20); Calcium 9.3 mg/dl (8.4-10.2); Carbon Dioxide 28 mmol/L (22.0-30.0); Creatine Kinase 65 U/L (55-170); Creatinine Clearance Estimated 77 mL/min (50-200); Estimated Glomerular Filt Rate 114 ml/min (>60); GFR (African American) 138 ML/MIN (>60); Glucose 99 mg/dl (74-100); Magnesium 1.7 mg/dl (1.6-2.3); Phosphorous 3.4 mg/dl (2.5-4.5); Total Protein,Serum 7.4 g/dl (6.3-8.2)
[2023-05-24 18:39] LABS: Basophils # 0.1 K/mm3 (0-0.2); Basophils % 1.2 % (0.1-2.0); Eosinophils # 0.2 K/mm3 (0.0-0.4); Eosinophils % 2.7 % (0.1-12.0); Hematocrit 58.2 % (42.0-52.0); Lymphocytes % 14.9 % (10-50); Mean Corpuscular HGB Conc 32.8 g/dL (31.8-35.4); Mean Corpuscular Hemoglobin 35.3 pg (27.0-31.2); Mean Corpuscular Volume 107.4 fl (80-94); Mean Platelet Volume 10.2 fl (7.4-10.4); Monocytes # 0.4 K/mm3 (0.1-1.0); Monocytes % 6.6 % (1.7-9.3); Neutrophils # 4.8 K/mm3 (1.8-7.8); Neutrophils % 74.8 % (37.0-80.0); Red Blood Count 5.42 M/mm3 (4.60-6.20); Red Cell Distribution Width 14.7 % (11.5-17.5); White Blood Count 6.5 K/mm3 (4.8-10.8)
[2023-05-24 18:46] LABS: Platelet Count 39 K/mm3 (142-424)
[2023-05-24 18:47] LABS: NT Pro Brain Natriuretic Pep. 473 pg/mL (0-125)
--- NOTE | 2023-05-24 18:49 | PC.NURSE ---
Anh from Lab called critical value of platelet of 39. Repeated and verified. Dr. Marin notified of critical.
[2023-05-24 18:53] LABS: Troponin I < 0.01 ng/ml (0.00-0.034)
[2023-05-24 19:02] LABS: Hemoglobin 19.1 g/dL (14.1-18.0)
--- NOTE | 2023-05-24 19:23 | PC.NURSE ---
Pt orthostatics complete and charted. Laying 114/64 Sitting 116/61 Standing 84/63
--- NOTE | 2023-05-24 19:29 | PC.NURSE ---
Pt CIWA 0 at this time, last drink on Wednesday (2beers). No complaints of pain, nausea, or vomiting. No needs at this time.
--- NOTE | 2023-05-24 19:45 | PC.NURSE ---
spoke with warehouse selector Aly. Informed of patient admit, requested bed at this time
[2023-05-24 19:59] VITALS: BP 110/67; PULSE 77; RESP 16; TEMP 36.4; O2SAT 100
--- NOTE | 2023-05-24 19:59 | PC.NURSE ---
Report called to catalina ELAINE
[2023-05-24 20:00] VITALS: BP 110/67; PULSE 77; RESP 16; TEMP 36.4; O2SAT 100
[2023-05-24 21:22] VITALS: PULSE 64
--- NOTE | 2023-05-24 21:35 | P.HP_ITS ---
History of Present Illness *Admission Date: 05/24/23 *Reason for visit:: orthostatic hypotension *History of present illness: 62 year old male presented to [facility] ED for c/o syncope. He states he keeps falling to his knees when he stands up. PMHX of HTN, CAD, COPD, alcohol and tobacco abuse. His last beer was yesterday. Reports drinking a 12 pack daily. He was given 1L of LR in the ED with slight improvement with how he felt overall but still was orthostatic with systolic in the 80's. His ED workup revealed Plt of 39, Na 127, BUN 6, AST 71 and BNP 473. The ED physician consulted the hospitalist team for further medical management. I admitted him to the medical surgical floor. He arrives in no acute distress any is not displaying any signs of alcohol withdrawal. [facility] Disclaimer: The information contained in this section may have been updated after the patient was seen, as this information can be updated by other users. Medical History Alcohol abuse Family History (Updated 04/15/23 @ 11:23 by Nicolette Bledsoe CMA) Other Cancer Heart attack Social History (Updated 05/24/23 @ 21:46 by Sofi Person RN) Smoking Status: Current every day smoker tobacco type: cigarettes packs per day: 1 second hand exposure: Yes alcohol intake: current substance use type: denies use current occupational status: unemployed Travel in the last 8 weeks: None housing: house Review of Systems Review of Systems Review of systems:: pertinent systems reviewed and negative unless documented below Meds Home Medications and Allergies Home Medications Medication Instructions Recorded Confirmed Type albuterol sulfate 90 mcg/actuation 1 puff inhalation Q6H PRN 04/15/23 05/25/23 Rx aerosol inhaler (Ventolin HFA) shortness of breath #18 grams aspirin 81 mg chewable tablet 81 mg PO DAILY 90 days #90 tabs 04/15/23 05/25/23 Rx carvedilol 25 mg tablet 25 mg PO BID 90 days #180 tabs 04/15/23 05/25/23 Rx losartan 50 mg tablet 50 mg PO BID 90 days #180 tabs 04/15/23 05/25/23 Rx budesonide-formoterol HFA 160 1 inh inhalation BID #10.2 grams 04/16/23 05/25/23 Rx mcg-4.5 mcg/actuation aerosol inhaler (Symbicort) New Prescriptions to Start Prescriptions: Allergies Allergy/AdvReac Type Severity Reaction Status Date / Time cephalexin [From KEFLEX] Allergy Mild Verified 04/15/23 11:15 penicillin G [PENICILLIN G] Allergy Mild Verified 04/15/23 11:15 Exam Data for Last 24 hours Vital signs and Labs for Last 24 Hours: Temp Pulse Resp BP Pulse Ox O2 Del Method 97.6 F 77 16 110/67 100 Room Air 05/24/23 19:59 05/24/23 19:59 05/24/23 19:59 05/24/23 19:59 05/24/23 17:48 05/24/23 19:59 Laboratory Results - last 24 hr 05/24/23 18:01: WBC 6.5, RBC 5.42, Hgb 19.1 H, Hct 58.2 H, MCV 107.4 H, MCH 35.3 H, MCHC 32.8, RDW 14.7, Plt Count 39 L*, MPV 10.2, Neut % (Auto) 74.8, Lymph % (Auto) 14.9, [place] % (Auto) 6.6, Eos % (Auto) 2.7, Baso % (Auto) 1.2, Neut # (Auto) 4.8, Lymph # (Auto) 1.0, [place] # (Auto) 0.4, Eos # (Auto) 0.2, Baso # (Auto) 0.1, PT 12.6 H, INR 1.18 H, Sodium 127 L, Potassium 3.8, Chloride 92 L, Carbon Dioxide 28, Anion Gap 10.8, BUN 6 L, Creatinine 0.70, Estimated Creat Clear 77, Estimated GFR 114, Est GFR ( Amer) 138, Glucose 99, Calcium 9.3, Phosphorus 3.4, Magnesium 1.7, Total Bilirubin 1.6 H, AST 71 H, ALT 36, Alkaline Phosphatase 58, Total Creatine Kinase 65, Troponin I < 0.01, NT-Pro-B Natriuret Pep 473 H, Total Protein 7.4, Albumin 4.4, Globulin 3.0, Albumin/Globulin Ratio 1.5 I & O for Last 24 hours: Intake & Output 05/21/23 05/22/23 05/23/23 05/24/23 23:59 23:59 23:59 23:59 Weight 70.76 kg Constitutional Constitutional: thin and chronically ill appearing *Routine HEENT Exam Head: Present normocephalic Eye: Present EOMI ENT: Present mucous membranes moist *Routine Neck Exam Neck: Present full ROM *Routine Respiratory Exam Respiratory: Present wheezes and symmetric chest movement *Routine Cardiovascular Exam Cardiovascular: Present RRR *Routine Abdominal Exam Abdominal: Present soft and normoactive bowel sounds; Absent tenderness *Routine Rectal Exam Rectal:: deferred *Routine Genitalia Exam Genitalia:: deferred *Routine Extremities Exam Extremities: Present full ROM *Routine Skin Exam Skin: Present intact and ecchymosis *Routine Neurological Exam Neurological: Present alert and oriented X3 Assessment and Plan *Assessment and plan (1) Orthostatic hypotension: Status: Acute Category: Medical Code(s): I95.1 - Orthostatic hypotension (2) Acute hyponatremia: Status: Acute Category: Medical Code(s): E87.1 - Hypo-osmolality and hyponatremia (3) Chronic alcohol use: Problem Comment: I think this patient is probably an alcoholic. Discussed his alcohol use with him but he is obviously not interested in quitting. Status: Acute Category: Medical Code(s): F10.90 - Alcohol use, unspecified, uncomplicated (4) COPD (chronic obstructive pulmonary disease): Problem Comment: Will send this patient to pulmonary for evaluation and PFTs. Will refill his inhalers today. Status: Acute Qualifiers: COPD type: emphysema Emphysema type: unspecified Qualified Code(s): J43.9 - Emphysema, unspecified Category: Medical Code(s): J44.9 - Chronic obstructive pulmonary disease, unspecified (5) Hypertension: Problem Comment: Patient's blood pressure today is 162/84. He is not on his medications. Will refill those today. Status: Acute Qualifiers: Hypertension type: primary hypertension Qualified Code(s): I10 - Essential (primary) hypertension Category: Medical Code(s): I10 - Essential (primary) hypertension (6) Thrombocytopenia: Problem Comment: Patient has chronic thrombocytopenia. His level has never been greater than about 90 at the most. It is unclear to me if this has been worked up. Will ch katie a CBC today. Addition we will send him to hematology for evaluation. Will check B12 and iron studies etc. today. Status: Acute Category: Medical Code(s): D69.6 - Thrombocytopenia, unspecified (7) Carotid artery stenosis: Status: Acute Category: Medical Code(s): I65.29 - Occlusion and stenosis of unspecified carotid artery (8) Tobacco abuse: Status: Acute Category: Medical Code(s): Z72.0 - Tobacco use Plan 62 year old male presented to [facility] ED for c/o syncope. He states he keeps falling to his knees when he stands up. PMHX of HTN, CAD, COPD, alcohol and tobacco abuse. His last beer was yesterday. Reports drinking a 12 pack daily. He was given 1L of LR in the ED with slight improvement with how he felt overall but still was orthostatic with systolic in the 80's. His ED workup revealed Plt of 39, Na 127, BUN 6, AST 71 and BNP 473. The ED physician consulted the hospitalist team for further medical management. I admitted him to the medical surgical floor. He arrives in no acute distress any is not displaying any signs of alcohol withdrawal. ORTHOSTATIC HYPOTENSION ACUTE HYPONATREMIA -1L of LR in ED -Continue gentle hydration due to elevated BNP -repeat BMP in morning -bed alarm and ambulatory assistances CHRONIC ALCOHOL USE -ciwa orders initiated -thiamine 100 mg, multivitamin 1 tab, and folic acid daily COPD HTN THROMBOCYOPENIA CAROTID ARTERY STENOSIS -awaiting home med req -duoneb q 6hr prn -chronic alcohol use TOBACCO ABUSE -nicotine patch PRN FULL CODE REGULAR DIET DVT: HOLD Rounded on patient after nurse practitioner. Personally examined and interviewed patient. Agree with exam findings and care plan as documented. Pressure improving by morning.
[2023-05-24] MEDS: 0.9 % SODIUM CHLORIDE 1000ML 1,000 ML 50 ML IV (21:56)
[2023-05-24] MEDS: NICOTINE 21MG/24HR PATCH 21 MG TD (21:56)
[2023-05-24] MEDS: ACETAMINOPHEN 325MG TAB 650 MG PO (21:56)
[2023-05-24 22:04] LABS: Troponin I < 0.01 ng/ml (0.00-0.034)
[2023-05-25] VITALS (10 sets, daily range): BP systolic 150–186; BP diastolic 74–98; PULSE 66–90; RESP 18–20; TEMP 36.6–37.1; O2SAT 95–99; BMI 23.6
[2023-05-25 00:46] LABS: Troponin I < 0.01 ng/ml (0.00-0.034)
[2023-05-25 05:35] LABS: Barbiturates Screen,Urine Negative ng/ml (<200)
[2023-05-25 05:36] LABS: Benzodiazepines Screen,Urine Negative ng/ml (<200)
[2023-05-25 05:37] LABS: Amphetamine/Metha Screen,Urine Negative ng/ml (<1000); Cannabinoid Screen,Urine Negative ng/ml (<50)
[2023-05-25 05:38] LABS: Cocaine Screen,Urine Negative ng/ml (<300)
[2023-05-25 05:39] LABS: Methadone Screen,Urine Negative ng/ml (<300); Phencyclidine Screen,Urine Negative ng/ml (<25)
[2023-05-25 05:40] LABS: Opiate Screen,Urine Negative ng/ml (<300)
--- NOTE | 2023-05-25 06:09 | PC.NURSE ---
Patient has had a good shift since coming up from the ER. Has been able rest. only complaint has been a headache no other issues this shift. CIWAs have been a zero.
[2023-05-25] MEDS: CARVEDILOL 25MG TABLET 25 MG PO ×2 (06:29→20:43)
[2023-05-25] MEDS: ASPIRIN 81MG CHEWABLE TABLET 81 MG PO (06:29)
[2023-05-25] MEDS: ACETAMINOPHEN 325MG TAB 650 MG PO ×2 (06:33→15:57)
[2023-05-25 07:25] LABS: Basophils # 0.1 K/mm3 (0-0.2); Basophils % 2.1 % (0.1-2.0); Eosinophils # 0.1 K/mm3 (0.0-0.4); Eosinophils % 3.5 % (0.1-12.0); Hematocrit 51.7 % (42.0-52.0); Lymphocytes # 0.7 K/mm3 (0.7-4.5); Lymphocytes % 24.2 % (10-50); Mean Corpuscular HGB Conc 31.7 g/dL (31.8-35.4); Mean Corpuscular Hemoglobin 34.9 pg (27.0-31.2); Mean Corpuscular Volume 110.1 fl (80-94); Mean Platelet Volume 10.7 fl (7.4-10.4); Monocytes # 0.4 K/mm3 (0.1-1.0); Neutrophils # 1.7 K/mm3 (1.8-7.8); Neutrophils % 58.2 % (37.0-80.0); Red Cell Distribution Width 14.8 % (11.5-17.5)
[2023-05-25 07:29] LABS: Platelet Count 19 K/mm3 (142-424)
--- NOTE | 2023-05-25 07:37 | P.CONPHA_ITS ---
Pharmacy Intervention Comments: HOME MEDICATION LIST VERIFIED SUING LIST FROM [facility]
--- NOTE | 2023-05-25 07:37 | HMH.PHAINT1 ---
Pharmacy Intervention Comments: HOME MEDICATION LIST VERIFIED SUING LIST FROM [facility]
[2023-05-25 07:40] LABS: Activated Partial Thrombo Time 29.1 seconds (22.8-30.6); INR 1.25 (0.9-1.1); Prothrombin Time 13.3 seconds (10.1-12.5)
[2023-05-25 07:50] LABS: Hemoglobin 16.4 g/dL (14.1-18.0)
[2023-05-25 07:53] LABS: Anion Gap 5.4 mEq/L (5-15); Blood Urea Nitrogen 6 mg/dl (9-20); Calcium 8.5 mg/dl (8.4-10.2); Carbon Dioxide 29 mmol/L (22.0-30.0); Chloride 96 mmol/L (98-107); Creatinine Clearance Estimated 74 mL/min (50-200); Estimated Glomerular Filt Rate 98 ml/min (>60); GFR (African American) 119 ML/MIN (>60); Glucose 112 mg/dl (74-100); Potassium 3.4 mmoL/L (3.5-5.1); Sodium 127 mmol/L (136-145)
[2023-05-25 08:30] LABS: Magnesium 1.6 mg/dl (1.6-2.3); Phosphorous 3.1 mg/dl (2.5-4.5)
[2023-05-25] MEDS: FOLIC ACID 1MG TABLET 1 MG PO (09:41)
[2023-05-25] MEDS: THIAMINE 100MG TABLET 100 MG PO (09:41)
[2023-05-25] MEDS: IRBESARTAN 75MG TABLET 75 MG PO ×2 (09:41→15:58)
--- NOTE | 2023-05-25 15:12 | PC.NURSE ---
Pt. aox4, up with assistance times one, ciwa zero, 20 g right AC with NS @ 50 ml/hr, bed alarm on, urinal in reach.
[2023-05-25] MEDS: MULTIVITAMIN TABLET 1 EACH PO (15:58)
[2023-05-25] MEDS: 0.9 % SODIUM CHLORIDE 1000ML 1,000 ML 50 ML IV (16:01)
[2023-05-25] MEDS: IRBESARTAN 150MG TAB 150 MG PO ×2 (16:02→20:43)
--- NOTE | 2023-05-25 16:26 | P.PN_ITS ---
Subjective *Date: 05/25/23 *Time: 16:26 Interval history: Patient feeling better this morning. Blood pressure improved. Had orthostatics on vitals in the ER. Tolerating p.o. intake. No significant withdrawal symptoms overnight. CIWA's of 0. No active bleeding. Platelets low. Still has low sodium, magnesium and kidney function within normal range however. Lab abnormalities consistent with alcoholism Medical Exam Vital signs and Labs for Last 24 Hours: Vital Signs Temp Pulse Pulse Pulse Pulse Pulse Resp 05/25/23 16:23 05/25/23 15:23 98.8 F 78 20 05/25/23 14:05 05/25/23 13:00 05/25/23 11:12 98.5 F 73 18 05/25/23 10:25 05/25/23 09:00 05/25/23 08:00 05/25/23 08:00 90 05/25/23 07:59 98.3 F 76 20 05/25/23 06:46 05/25/23 05:00 05/25/23 04:00 98.0 F 70 18 05/25/23 04:00 69 05/25/23 02:54 05/25/23 01:00 05/25/23 00:00 66 05/25/23 00:00 98 F 73 18 05/24/23 23:00 05/24/23 21:22 64 05/24/23 21:00 05/24/23 20:00 97.6 F 77 16 05/24/23 20:00 05/24/23 19:59 97.6 F 77 16 05/24/23 18:16 77 05/24/23 18:07 72 75 05/24/23 17:48 98.7 F 64 18 BP BP BP BP BP Pulse Ox O2 Del Method 05/25/23 16:23 Room Air 05/25/23 15:23 181/96 H 98 Room Air 05/25/23 14:05 Room Air 05/25/23 13:00 Room Air 05/25/23 11:12 150/92 H 99 Room Air 05/25/23 10:25 Room Air 05/25/23 09:00 Room Air 05/25/23 08:00 Room Air 05/25/23 08:00 05/25/23 07:59 155/90 H 97 Room Air 05/25/23 06:46 Room Air 03/19/24 05:00 Room Air 05/25/23 04:00 186/98 H 98 Room Air 05/25/23 04:00 05/25/23 02:54 Room Air 05/25/23 01:00 Room Air 05/25/23 00:00 05/25/23 00:00 167/83 H 97 Room Air 05/24/23 23:00 Room Air 05/24/23 21:22 05/24/23 21:00 Room Air 05/24/23 20:00 110/67 100 Room Air 05/24/23 20:00 Room Air 05/24/23 19:59 110/67 Room Air 05/24/23 18:16 114/64 05/24/23 18:07 116/61 84/63 L 05/24/23 17:48 132/86 100 Room Air Intake and Output 05/25/23 05/25/23 05/25/23 07:59 15:59 23:59 Intake Total 510 / 1630 1120 / 1630 Output Total 250 / 1050 800 / 1050 Balance 260 / 580 320 / 580 Intake: Intake, Oral Amount 510 / 1230 720 / 1230 Intake, Total IV Amount 400 / 400 0.9 % Sodium Chloride 1000ML 1, 400 / 400 000 ml @ 50 mls/hr IV .Q20H [facility] Rx#:[id number] Output: Output, Urine Amount 250 / 1050 800 / 1050 Other: Number of Unmeasured Voids 1 0 Number of Bowel Movements 0 0 Weight 68.237 kg Patient Weight 05/25/23 23:59 Weight 68.237 kg Laboratory Results - last 24 hr 05/24/23 18:01: WBC 6.5, RBC 5.42, Hgb 19.1 H, Hct 58.2 H, MCV 107.4 H, MCH 35.3 H, MCHC 32.8, RDW 14.7, Plt Count 39 L*, MPV 10.2, Neut % (Auto) 74.8, Lymph % (Auto) 14.9, [place] % (Auto) 6.6, Eos % (Auto) 2.7, Baso % (Auto) 1.2, Neut # (Auto) 4.8, Lymph # (Auto) 1.0, [place] # (Auto) 0.4, Eos # (Auto) 0.2, Baso # (Auto) 0.1, PT 12.6 H, INR 1.18 H, Sodium 127 L, Potassium 3.8, Chloride 92 L, Carbon Dioxide 28, Anion Gap 10.8, BUN 6 L, Creatinine 0.70, Estimated Creat Clear 77, Estimated GFR 114, Est GFR ( Amer) 138, Glucose 99, Calcium 9.3, Phosphorus 3.4, Magnesium 1.7, Total Bilirubin 1.6 H, AST 71 H, ALT 36, Alkaline Phosphatase 58, Total Creatine Kinase 65, Troponin I < 0.01, NT-Pro-B Natriuret Pep 473 H, Total Protein 7.4, Albumin 4.4, Globulin 3.0, Albumin/Globulin Ratio 1.5 05/24/23 21:00: Troponin I < 0.01 05/25/23 00:13: Troponin I < 0.01 05/25/23 05:05: Urine Opiates Screen Negative, Urine Methadone Screen Negative, Ur Barbituates Screen Negative, Ur Phencyclidine Scrn Negative, Ur Amphetamines Screen Negative, U Benzodiazepines Scrn Negative, Urine Cocaine Screen Negative, U Marijuana (THC) Screen Negative 05/25/23 06:53: WBC 3.0 L D, RBC 4.70, Hgb 16.4 D, Hct 51.7, MCV 110.1 H, MCH 34.9 H, MCHC 31.7 L, RDW 14.8, Plt Count 19 L* D, MPV 10.7 H, Neut % (Auto) 58.2, Lymph % (Auto) 24.2, [place] % (Auto) 12.0 H, Eos % (Auto) 3.5, Baso % (Auto) 2.1 H, Neut # (Auto) 1.7 L, Lymph # (Auto) 0.7, [place] # (Auto) 0.4, Eos # (Auto) 0.1, Baso # (Auto) 0.1, PT 13.3 H, INR 1.25 H, APTT 29.1, Sodium 127 L, Potassium 3.4 L, Chloride 96 L, Carbon Dioxide 29, Anion Gap 5.4, BUN 6 L, Creatinine 0.80, Estimated Creat Clear 74, Estimated GFR 98, Est GFR ( Amer) 119, Glucose 112 H, Calcium 8.5, Phosphorus 3.1, Magnesium 1.6 I & O for Labs for Last 24 Hours: Intake & Output 05/22/23 05/23/23 05/24/23 05/25/23 23:59 23:59 23:59 23:59 Intake Total 1630 / 1630 Output Total 250 / 250 1050 / 1050 Balance -250 / -100 580 / 580 Weight 70.76 kg 68.237 kg Constitutional: Present no acute distress, average body habitus, chronically ill appearing and cooperative Head: Present atraumatic and normocephalic ENT: Present normal exam Neck: Present normal inspection Respiratory: Present normal respiratory effort; Absent rhonchi, wheezes or crackles Cardiac: Present Reg Rate and Rhythm GI: Present soft and normal bowel sounds; Absent distention or tenderness Rectal (male): Present deferred Extremities: Present normal inspection and full ROM Skin: Present intact; Absent erythema Neuro: Present Grossly Intact, alert, awake, oriented x 3 and moves all extremities; Absent Essential Tremor Assessment and Plan *Assessment and plan (1) Orthostatic hypotension: Status: Acute Category: Medical Code(s): I95.1 - Orthostatic hypotension (2) Acute hyponatremia: Status: Acute Category: Medical Code(s): E87.1 - Hypo-osmolality and hyponatremia (3) Chronic alcohol use: Problem Comment: I think this patient is probably an alcoholic. Discussed his alcohol use with him but he is obviously not interested in quitting. Status: Acute Category: Medical Code(s): F10.90 - Alcohol use, unspecified, uncomplicated (4) COPD (chronic obstructive pulmonary disease): Problem Comment: Will send this patient to pulmonary for evaluation and PFTs. Will refill his inhalers today. Status: Acute Qualifiers: COPD type: emphysema Emphysema type: unspecified Qualified Code(s): J43.9 - Emphysema, unspecified Category: Medical Code(s): J44.9 - Chronic obstructive pulmonary disease, unspecified (5) Hypertension: Problem Comment: Patient's blood pressure today is 162/84. He is not on his medications. Will refill those today. Status: Acute Qualifiers: Hypertension type: primary hypertension Qualified Code(s): I10 - Essential (primary) hypertension Category: Medical Code(s): I10 - Essential (primary) hypertension (6) Thrombocytopenia: Problem Comment: Patient has chronic thrombocytopenia. His level has never been greater than about 90 at the most. It is unclear to me if this has been worked up. Will check a CBC today. Addition we will send him to hematology for evaluation. Will check B12 and iron studies etc. today. Status: Acute Category: Medical Code(s): D69.6 - Thrombocytopenia, unspecified (7) Carotid artery stenosis: Status: Acute Category: Medical Code(s): I65.29 - Occlusion and stenosis of unspecified carotid artery (8) Tobacco abuse: Status: Acute Category: Medical Code(s): Z72.0 - Tobacco use Plan 62 year old male presented to [facility] ED for c/o syncope. He states he keeps falling to his knees when he stands up. PMHX of HTN, CAD, COPD, alcohol and tobacco abuse. His last beer was yesterday. Reports drinking a 12 pack daily. He was given 1L of LR in the ED with slight improvement with how he felt overall but still was orthostatic with systolic in the 80's. His ED workup revealed Plt of 39, Na 127, BUN 6, AST 71 and BNP 473. The ED physician consulted the hospitalist team for further medical management. Medicine admitted. Patient doing well overnight. C was 0. Continues to have low sodium and thrombocytopenia. Monitoring for the next 24 hours. Problems addressed as follows: ORTHOSTATIC HYPOTENSION transitioned over to hypertension ACUTE HYPONATREMIA -1L of LR in ED, sodium 127 on morning labs. Repeat CMP in 12 hours. Monitoring for correction of less then 8 to 10 mEq/day. - bed alarm and ambulatory assistances -Blood pressure doing better, actually hypertensive today. Continue carvedilol 25 mg twice daily. Increase irbesartan to 150 mg twice daily given hypertension. -Initiate amlodipine 5 mg daily first dose in the morning CHRONIC ALCOHOL USE -ciwa orders initiated -thiamine 100 mg, multivitamin 1 tab, and folic acid daily -MCV 107. INR 1.25. No craig bleeding. Cyanocobalamin IM x 1 today COPD HTN THROMBOCYOPENIA CAROTID ARTERY STENOSIS -Breathing stable, on room air. Monitor for sats greater than 90% -DuoNebs as needed every 6 hours -Platelets 19 this morning, worsening thrombocytopenia. Likely secondary to alcoholism. Repeat CBC ordered for the morning. -No active bleeding, will transfuse platelets if below threshold of 10 or develops active bleeding TOBACCO ABUSE: nicotine patch PRN FULL CODE REGULAR DIET DVT: HOLD in the setting of thrombocytopenia
[2023-05-25] MEDS: VITAMIN B-12 1,000 MCG 1ML VIAL 1000 MCG IM (16:36)
[2023-05-25 18:48] LABS: Chloride 97 mmol/L (98-107)
[2023-05-25 18:49] LABS: Potassium 3.4 mmoL/L (3.5-5.1); Sodium 129 mmol/L (136-145)
[2023-05-25 18:52] LABS: Anion Gap 8.4 mEq/L (5-15); Blood Urea Nitrogen 7 mg/dl (9-20); Calcium 8.3 mg/dl (8.4-10.2); Carbon Dioxide 27 mmol/L (22.0-30.0); Creatinine Clearance Estimated 74 mL/min (50-200); Estimated Glomerular Filt Rate 86 ml/min (>60); GFR (African American) 103 ML/MIN (>60); Glucose 119 mg/dl (74-100)
[2023-05-26] VITALS (8 sets, daily range): BP systolic 153–175; BP diastolic 84–100; PULSE 60–86; RESP 16–20; TEMP 36.6–37.1; O2SAT 97–100; BMI 24.0
--- NOTE | 2023-05-26 04:06 | PC.NURSE ---
Patient slept well this shift. Patient had no c/o of pain. CIWA scored 0 x3. Patient uses urinal independently. Bed alarm and seizure precautions in place. Call light within reach.
[2023-05-26] MEDS: ACETAMINOPHEN 325MG TAB 650 MG PO (04:53)
[2023-05-26] MEDS: IPRATROPIUM/ALBUTEROL 3 ML NEB IH (06:35)
[2023-05-26] MEDS: BUDESONIDE 0.5MG/2ML NEB 0.5 MG IH (06:35)
[2023-05-26] MEDS: POTASSIUM CHLORIDE 20MEQ TAB 40 MEQ PO (06:42)
[2023-05-26 07:04] LABS: Basophils % 1.1 % (0.1-2.0); Eosinophils # 0.1 K/mm3 (0.0-0.4); Eosinophils % 3.8 % (0.1-12.0); Hematocrit 47.2 % (42.0-52.0); Hemoglobin 15.5 g/dL (14.1-18.0); Lymphocytes # 0.9 K/mm3 (0.7-4.5); Lymphocytes % 29.9 % (10-50); Mean Corpuscular HGB Conc 32.8 g/dL (31.8-35.4); Mean Corpuscular Hemoglobin 35.2 pg (27.0-31.2); Mean Corpuscular Volume 107.5 fl (80-94); Mean Platelet Volume 9.9 fl (7.4-10.4); Monocytes # 0.4 K/mm3 (0.1-1.0); Monocytes % 12.1 % (1.7-9.3); Neutrophils # 1.6 K/mm3 (1.8-7.8); Neutrophils % 53.1 % (37.0-80.0); Red Blood Count 4.39 M/mm3 (4.60-6.20); Red Cell Distribution Width 14.7 % (11.5-17.5); White Blood Count 3.1 K/mm3 (4.8-10.8)
[2023-05-26 07:07] LABS: Alanine Aminotransferase 18 U/L (12-78); Albumin Level 3.2 g/dl (3.5-5.0); Albumin/Globulin Ratio 1.3 (1.1-1.8); Alkaline Phosphatase 45 U/L (38-126); Anion Gap 5.4 mEq/L (5-15); Aspartate Amino Transferase 37 U/L (17-59); Bilirubin,Total 1.1 mg/dl (0.2-1.3); Blood Urea Nitrogen 6 mg/dl (9-20); Calcium 8.2 mg/dl (8.4-10.2); Carbon Dioxide 28 mmol/L (22.0-30.0); Chloride 99 mmol/L (98-107); Creatinine Clearance Estimated 75 mL/min (50-200); Estimated Glomerular Filt Rate 98 ml/min (>60); GFR (African American) 119 ML/MIN (>60); Globulin 2.4 g/dL (1.3-3.2); Glucose 102 mg/dl (74-100); Magnesium 1.7 mg/dl (1.6-2.3); Potassium 3.4 mmoL/L (3.5-5.1); Sodium 129 mmol/L (136-145); Total Protein,Serum 5.6 g/dl (6.3-8.2)
[2023-05-26 07:16] LABS: Platelet Count 25 K/mm3 (142-424)
--- NOTE | 2023-05-26 07:28 | EXP.DC.SUM ---
General Admission date:: 05/24/23 Discharge date: 05/26/23 HPI HPI HPI: 62 year old male presented to [facility] ED for c/o syncope. He states he keeps falling to his knees when he stands up. PMHX of HTN, CAD, COPD, alcohol and tobacco abuse. His last beer was yesterday. Reports drinking a 12 pack daily. He was given 1L of LR in the ED with slight improvement with how he felt overall but still was orthostatic with systolic in the 80's. His ED workup revealed Plt of 39, Na 127, BUN 6, AST 71 and BNP 473. The ED physician consulted the hospitalist team for further medical management. I admitted him to the medical surgical floor. He arrives in no acute distress any is not displaying any signs of alcohol withdrawal. Hospital Course Hospital Course Hospital Course: 62 year old male presented to [facility] ED for c/o syncope. He states he keeps falling to his knees when he stands up. PMHX of HTN, CAD, COPD, alcohol and tobacco abuse. His last beer was yesterday. Reports drinking a 12 pack daily. He was given 1L of LR in the ED with slight improvement with how he felt overall but still was orthostatic with systolic in the 80's. His ED workup revealed Plt of 39, Na 127, BUN 6, AST 71 and BNP 473. The ED physician consulted the hospitalist team for further medical management. Medicine admitted. Patient did well with gentle hydration and adjustments in his blood pressure meds. Stable to discharge home with referrals for follow-up at time of discharge. Problems addressed as follows: ORTHOSTATIC HYPOTENSION transitioned over to hypertension ACUTE HYPONATREMIA - admitted for hyponatremia. Received fluids in the ER. Sodium improving. 129 at time of discharge. Correcting within appropriate range daily. Adjustments made to his blood pressure regimen. During admission, his orthostasis resolved and he actually was hypertensive. Continue carvedilol, increased irbesartan, added amlodipine. Strongly recommended adjustments in his alcoholism as this is probably the source of his hypotension as well as hyponatremia. Does have significant hypertension. Continue meds as prescribed. Encourage sodium supplementation with diet. Anticipate resolution if he cuts back on alcohol/beer along with initiation of sodium tabs supplementation. CHRONIC ALCOHOL USE -See report goal during admission. No significant withdrawal symptoms. Continued vitamin supplementation. Concern is alcoholism directly underlies his orthostasis that brought him into the hospital as well this is thrombocytopenia below. Counseled on need to quit. COPD HTN THROMBOCYOPENIA CAROTID ARTERY STENOSIS -Breathing stable, on room air. 10 sats greater 90% during admission. DuoNebs as needed. Patient had thrombocytopenia throughout admission. Platelets of 25 on day of discharge. Likely secondary to alcoholism, however will refer to hematology/oncology at discharge for further evaluation. No active bleeding. No need for platelet transfusion. TOBACCO ABUSE: nicotine patch, cessation recommended Exam Data for Last 24 hours Vital signs and Labs for Last 24 Hours: Temp Pulse Resp BP Pulse Ox O2 Del Method 98.2 F 85 18 155/90 H 97 Room Air 05/26/23 04:00 05/26/23 06:34 05/26/23 04:00 05/26/23 04:00 05/26/23 04:00 05/26/23 06:54 Laboratory Results - last 24 hr 05/25/23 06:53: WBC 3.0 L D, RBC 4.70, Hgb 16.4 D, Hct 51.7, MCV 110.1 H, MCH 34.9 H, MCHC 31.7 L, RDW 14.8, Plt Count 19 L* D, MPV 10.7 H, Neut % (Auto) 58.2, Lymph % (Auto) 24.2, [place] % (Auto) 12.0 H, Eos % (Auto) 3.5, Baso % (Auto) 2.1 H, Neut # (Auto) 1.7 L, Lymph # (Auto) 0.7, [place] # (Auto) 0.4, Eos # (Auto) 0.1, Baso # (Auto) 0.1, PT 13.3 H, INR 1.25 H, APTT 29.1, Sodium 127 L, Potassium 3.4 L, Chloride 96 L, Carbon Dioxide 29, Anion Gap 5.4, BUN 6 L, Creatinine 0.80, Estimated Creat Clear 74, Estimated GFR 98, Est GFR ( Amer) 119, Glucose 112 H, Calcium 8.5, Phosphorus 3.1, Magnesium 1.6 05/25/23 : Sodium 129 L, Potassium 3.4 L, Chloride 97 L, Carbon Dioxide 27, Anion Gap 8.4, BUN 7 L, Creatinine 0.90, Estimated Creat Clear 74, Estimated GFR 86, Est GFR ( Amer) 103, Glucose 119 H, Calcium 8.3 L 05/26/23 06:08: WBC 3.1 L, RBC 4.39 L, Hgb 15.5, Hct 47.2, MCV 107.5 H, MCH 35.2 H, MCHC 32.8, RDW 14.7, Plt Count 25 L* D, MPV 9.9, Neut % (Auto) 53.1, Lymph % (Auto) 29.9, [place] % (Auto) 12.1 H, Eos % (Auto) 3.8, Baso % (Auto) 1.1, Neut # (Auto) 1.6 L, Lymph # (Auto) 0.9, [place] # (Auto) 0.4, Eos # (Auto) 0.1, Baso # (Auto) 0.0, Sodium 129 L, Potassium 3.4 L, Chloride 99, Carbon Dioxide 28, Anion Gap 5.4, BUN 6 L, Creatinine 0.80, Estimated Creat Clear 75, Estimated GFR 98, Est GFR ( Amer) 119, Glucose 102 H, Calcium 8.2 L, Magnesium 1.7, Total Bilirubin 1.1, AST 37 D, ALT 18 D, Alkaline Phosphatase 45, Total Protein 5.6 L, Albumin 3.2 L, Globulin 2.4, Albumin/Globulin Ratio 1.3 I & O for Last 24 hours: Intake & Output 05/23/23 05/24/23 05/25/23 05/26/23 23:59 23:59 23:59 23:59 Intake Total 2100 / 2100 Output Total 250 / 250 1450 / 1450 825 / 825 Balance -250 / -100 650 / 650 -825 / -825 Weight 70.76 kg 68.237 kg 69.49 kg Constitutional Constitutional: no acute distress, average body habitus, chronically ill appearing and cooperative *Routine HEENT Exam Head: Present normocephalic Eye: Present EOMI and PERRL ENT: Present mucous membranes moist *Routine Neck Exam Neck: Present supple; Absent lymphadenopathy *Routine Respiratory Exam Respiratory: Present CTA bilaterally; Absent wheezes or crackles *Routine Cardiovascular Exam Cardiovascular: Present RRR *Routine Abdominal Exam Abdominal: Present soft and normoactive bowel sounds; Absent tenderness *Routine Rectal Exam Patient deferred: visual exam *Routine Exam Patient deferred: penile exam *Routine Extremities Exam Extremities: Absent cyanosis, clubbing or edema *Routine Skin Exam Skin: Present warm; Absent rash *Routine Neurological Exam Neurological: Present alert, oriented X3 and moving all extremities; Absent altered mental status or tremors Results Data Completed and Pending Labs on day of discharge: Labs from last 24 hours 05/26/23 05/25/23 05/25/23 06:08 Unknown 06:53 WBC 3.1 L 3.0 L D RBC 4.39 L 4.70 Hgb 15.5 16.4 D Hct 47.2 51.7 MCV 107.5 H 110.1 H MCH 35.2 H 34.9 H MCHC 32.8 31.7 L RDW 14.7 14.8 Plt Count 25 L* D 19 L* D MPV 9.9 10.7 H Neut % (Auto) 53.1 58.2 Lymph % (Auto) 29.9 24.2 [place] % (Auto) 12.1 H 12.0 H Eos % (Auto) 3.8 3.5 Baso % (Auto) 1.1 2.1 H Neut # (Auto) 1.6 L 1.7 L Lymph # (Auto) 0.9 0.7 [place] # (Auto) 0.4 0.4 Eos # (Auto) 0.1 0.1 Baso # (Auto) 0.0 0.1 PT 13.3 H INR 1.25 H APTT 29.1 Sodium 129 L 129 L 127 L Potassium 3.4 L 3.4 L 3.4 L Chloride 99 97 L 96 L Carbon Dioxide 28 27 29 Anion Gap 5.4 8.4 5.4 BUN 6 L 7 L 6 L Creatinine 0.80 0.90 0.80 Estimated Creat Clear 75 74 74 Estimated GFR 98 86 98 Est GFR ( Amer) 119 103 119 Glucose 102 H 119 H 112 H Calcium 8.2 L 8.3 L 8.5 Phosphorus 3.1 Magnesium 1.7 1.6 Total Bilirubin 1.1 AST 37 D ALT 18 D Alkaline Phosphatase 45 Total Protein 5.6 L Albumin 3.2 L Globulin 2.4 Albumin/Globulin Ratio 1.3 DS: Diagnosis Discharge Diagnosis (1) Orthostatic hypotension: Status: Acute Code(s): I95.1 - Orthostatic hypotension (2) Acute hyponatremia: Status: Acute Code(s): E87.1 - Hypo-osmolality and hyponatremia (3) Chronic alcohol use: Status: Acute Code(s): F10.90 - Alcohol use, unspecified, uncomplicated Problem details: I think this patient is probably an alcoholic. Discussed his alcohol use with him but he is obviously not interested in quitting. (4) COPD (chronic obstructive pulmonary disease): Status: Acute Code(s): J44.9 - Chronic obstructive pulmonary disease, unspecified Qualifiers: COPD type: emphysema Emphysema type: unspecified Qualified Code(s): J43.9 - Emphysema, unspecified Problem details: Will send this patient to pulmonary for evaluation and PFTs. Will refill his inhalers today. (5) Hypertension: Status: Acute Code(s): I10 - Essential (primary) hypertension Qualifiers: Hypertension type: primary hypertension Qualified Code(s): I10 - Essential (primary) hypertension Problem details: Patient's blood pressure today is 162/84. He is not on his medications. Will refill those today. (6) Thrombocytopenia: Status: Acute Code(s): D69.6 - Thrombocytopenia, unspecified Problem details: Patient has chronic thrombocytopenia. His level has never been greater than about 90 at the most. It is unclear to me if this has been worked up. Will check a CBC today. Addition we will send him to hematology for evaluation. Will check B12 and iron studies etc. today. (7) Carotid artery stenosis: Status: Acute Code(s): I65.29 - Occlusion and stenosis of unspecified carotid artery (8) Tobacco abuse: Status: Acute Code(s): Z72.0 - Tobacco use Meds Home Medications and Allergies Home Medications Medication Instructions Recorded Confirmed Type albuterol sulfate 90 mcg/actuation 1 puff inhalation Q6H PRN 04/15/23 05/27/23 Rx aerosol inhaler (Ventolin HFA) shortness of breath #18 grams carvedilol 25 mg tablet 25 mg PO BID 90 days #180 tabs 04/15/23 05/27/23 Rx budesonide-formoterol HFA 160 1 inh inhalation BID #10.2 grams 04/16/23 05/27/23 Rx mcg-4.5 mcg/actuation aerosol inhaler (Symbicort) irbesartan 150 mg tablet 150 mg PO BID 30 days #60 tabs 05/26/23 05/27/23 Rx multivitamin with folic acid 400 1 tab PO 1700 30 days #30 tabs 05/26/23 05/27/23 Rx mcg tablet (Tab-A-Cuauhtemoc) nicotine 21 mg/24 hr daily 21 mg transdermal DAILYP PRN 05/26/23 05/27/23 Rx transdermal patch Nicotine Cravings 28 days #28 ea sodium chloride 1,000 mg soluble 500 mg (1/2 x 1,000 mg) PO BID 15 05/26/23 05/27/23 Rx tablet days #15 tabs thiamine mononitrate (vit B1) 100 100 mg PO DAILY 30 days #30 tabs 05/26/23 05/27/23 Rx mg tablet New Prescriptions to Start Prescriptions: irbesartan Adrian Castillo multivitamin with folic acid [Tab-A-Cuauhtemoc] Adrian Castillo nicotine Anna,Adrian sodium chloride Adrian Castillo thiamine mononitrate (vit B1) Adrian Castillo Allergies Allergy/AdvReac Type Severity Reaction Status Date / Time cephalexin [From KEFLEX] Allergy Mild Verified 05/27/23 09:16 penicillin G [PENICILLIN G] Allergy Mild Verified 05/27/23 09:16 Discharge Plan Disposition Patient Disposition: Home, Self-Care Condition: Fair Follow up Plan Follow up with: Diego Kennedy DO [Primary Care Provider] - 06/03/23 9:15 am Maverick Neves MD [Staff Physician] - 05/27/23 9:15 am (Thrombocytopenia, macrocytosis. Peripheral smear pending. Likely secondary to alcoholism but needs further evaluation) Prescriptions/Medication Reconciliation: New irbesartan 150 mg Tablet 150 mg PO BID 30 Days Qty: 60 0RF multivitamin with folic acid [Tab-A-Cuauhtemoc] 400 mcg Tablet 1 tab PO 1700 30 Days Qty: 30 0RF nicotine 21 mg/24 hr Patch 24 Hour 21 mg transdermal DAILYP PRN (Reason: Nicotine Cravings) 28 Days Qty: 28 0RF sodium chloride 1,000 mg Tablet,Soluble 500 mg PO BID 15 Days Qty: 15 0RF thiamine mononitrate (vit B1) 100 mg Tablet 100 mg PO DAILY 30 Days Qty: 30 0RF Continued Ventolin HFA 90 mcg/actuation HFA aerosol inhaler 1 puff INHALATION Q6H PRN (Reason: shortness of breath) Qty: 18 2RF carvedilol 25 mg tablet 25 mg PO BID 90 Days Qty: 180 4RF budesonide-formoterol [Symbicort] 160-4.5 mcg/actuation HFA aerosol inhaler 1 inh inhalation BID Qty: 10.2 4RF Discontinued aspirin 81 mg tablet,chewable 81 mg PO DAILY 90 Days Qty: 90 4RF losartan 50 mg tablet 50 mg PO BID 90 Days Qty: 180 4RF Problem Reconciliation Problems Reviewed?: Yes Patient Discharge Instructions ACTIVITY: Continue current activity DIET: continue same diet Patient Instructions: DI for Syncope in Adults (Fainting), DI for Drug or Alcohol Withdrawal Providers Primary Care Provider: Diego Kennedy Admit Provider: Adrian Castillo Attending Provider: Adrian Castillo
[2023-05-26] MEDS: THIAMINE 100MG TABLET 100 MG PO (08:11)
[2023-05-26] MEDS: CARVEDILOL 25MG TABLET 25 MG PO (08:11)
[2023-05-26] MEDS: FOLIC ACID 1MG TABLET 1 MG PO (08:11)
[2023-05-26] MEDS: SODIUM CHLORIDE 1,000MG TABLET 500 MG PO (08:11)
[2023-05-26] MEDS: IRBESARTAN 150MG TAB 150 MG PO (08:18)
[2023-05-26] MEDS: MAGNESIUM SULFATE IN WATER 2 GM/50 ML PIGGYBACK IV (08:19)
[2023-05-26 14:26] LABS: Chloride 98 mmol/L (98-107); Potassium 4.1 mmoL/L (3.5-5.1); Sodium 129 mmol/L (136-145)
[2023-05-26 14:29] LABS: Blood Urea Nitrogen 6 mg/dl (9-20); Creatinine Clearance Estimated 75 mL/min (50-200); Estimated Glomerular Filt Rate 86 ml/min (>60); GFR (African American) 103 ML/MIN (>60)
[2023-05-26 14:30] LABS: Anion Gap 5.1 mEq/L (5-15); Calcium 8.4 mg/dl (8.4-10.2); Carbon Dioxide 30 mmol/L (22.0-30.0); Glucose 94 mg/dl (74-100)
[2023-05-26] MEDS: 0.9 % SODIUM CHLORIDE 1000ML 1,000 ML 50 ML IV (14:45)
--- NOTE | 2023-05-26 15:51 | SW/DCPLANNER ---
I have arranged [facility] for this patient. Confirmation # [id number]
--- NOTE | 2023-05-26 16:08 | HMH.PHAINT1 ---
Pharmacy Intervention Comments: Discharge medication counseling was provided on the following medications: -irbesartan 150mg twice a day -nicotine patch 21mg daily as needed; skin irritation--rotate sites -sodium chloride 500mg twice a day -thiamine 100mg daily -multivitamin 1x daily Patient to stop taking aspirin and losartan. Patient verbalized understanding with no other questions.
[2023-05-28 07:33] LABS: Peripheral Smear Review Scanned Result
--- NOTE | 2023-05-31 15:44 | CARE MANAGER ---
Contacted patient related to hospital discharge. He states he is doing well. He has a follow up appointment with PCP on and will take new medication list with him. He denies questions or concerns and is taking his new medication. CHELE Cochran
== END 2023-05-26 16:18 | disposition home or self-care (01) ==
LOC: ER 19:39 → 2ND 20:31
PROVIDERS: Nurse Practitioner Critical Care Medicine; Admitting Provider Internal Medicine Adolescent Medicine; Emergency Provider Student in an Organized Health Care Education/Training Program; PCP Internal Medicine; Visit Provider Internal Medicine Adolescent Medicine
DX: E87.1 Hypo-osmolality and hyponatremia (principal); R29.6 Repeated falls; I95.1 Orthostatic hypotension; I10 Essential (primary) hypertension; J43.9 Emphysema, unspecified; F17.210 Nicotine dependence, cigarettes, uncomplicated; R55 Syncope and collapse; I25.10 Atherosclerotic heart disease of native coronary artery without angina pectoris; F10.90 Alcohol use, unspecified, uncomplicated; D69.6 Thrombocytopenia, unspecified; Z79.899 Other long term (current) drug therapy; I65.29 Occlusion and stenosis of unspecified carotid artery
CPT/HCPCS: 36415; 71045; 80048; 80053; 80307; 82550; 83735; 83880; 84100; 84484; 85025; 85610; 85730; 93005; 94640; 99291; G0378; J3475

== ENCOUNTER 2023-06-03 11:31 | Outpatient (CLI) | payer BC, SELFPAY ==
[2023-06-03 11:37] LABS: Basophils # 0.1 K/mm3 (0-0.2); Basophils % 2.1 % (0.1-2.0); Eosinophils # 0.2 K/mm3 (0.0-0.4); Eosinophils % 5.3 % (0.1-12.0); Hemoglobin 16.4 g/dL (14.1-18.0); Lymphocytes # 1.4 K/mm3 (0.7-4.5); Lymphocytes % 33.4 % (10-50); Mean Corpuscular HGB Conc 32.2 g/dL (31.8-35.4); Mean Corpuscular Hemoglobin 35.3 pg (27.0-31.2); Mean Corpuscular Volume 109.7 fl (80-94); Mean Platelet Volume 10.7 fl (7.4-10.4); Monocytes # 0.8 K/mm3 (0.1-1.0); Monocytes % 18.9 % (1.7-9.3); Neutrophils # 1.7 K/mm3 (1.8-7.8); Neutrophils % 40.3 % (37.0-80.0); Platelet Count 60 K/mm3 (142-424); Red Blood Count 4.65 M/mm3 (4.60-6.20); Red Cell Distribution Width 14.4 % (11.5-17.5); White Blood Count 4.3 K/mm3 (4.8-10.8)
[2023-06-03 11:56] LABS: Alanine Aminotransferase 16 U/L (12-78); Albumin/Globulin Ratio 1.5 (1.1-1.8); Alkaline Phosphatase 59 U/L (38-126); Anion Gap 10.4 mEq/L (5-15); Aspartate Amino Transferase 37 U/L (17-59); Bilirubin,Total 0.8 mg/dl (0.2-1.3); Blood Urea Nitrogen 9 mg/dl (9-20); Calcium 9.7 mg/dl (8.4-10.2); Carbon Dioxide 29 mmol/L (22.0-30.0); Chloride 99 mmol/L (98-107); Estimated Glomerular Filt Rate 98 ml/min (>60); GFR (African American) 119 ML/MIN (>60); Globulin 2.7 g/dL (1.3-3.2); Glucose 101 mg/dl (74-100); Potassium 4.4 mmoL/L (3.5-5.1); Sodium 134 mmol/L (136-145); Total Protein,Serum 6.7 g/dl (6.3-8.2)
[2023-06-03 12:26] LABS: Prostate Specific Ag Screen 0.7 ng/ml (0.0-4.0)
[2023-06-03 14:04] LABS: Creatinine,Urine Random 122 mg/dL (Not Estab.); Microalbumin < 6.000 mg/L (0-16.7)
[2023-06-04 12:16] LABS: HBsAg Screen Negative (Negative); HCV Ab Non Reactive (Non Reactive); Hep A Ab, IGM Negative (Negative); Hep B Core Ab, IgM Negative (Negative)
== END 2023-06-03 23:59 ==
LOC: LAB.DROPOF 11:32
PROVIDERS: PCP Internal Medicine; Visit Provider Internal Medicine
DX: J44.9 Chronic obstructive pulmonary disease, unspecified (principal); D69.59 Other secondary thrombocytopenia; F10.90 Alcohol use, unspecified, uncomplicated; I10 Essential (primary) hypertension; Z79.899 Other long term (current) drug therapy
CPT/HCPCS: 80053; 80074; 82043; 82570; 85025; G0103

== ENCOUNTER 2023-07-29 11:52 | Outpatient (CLI) | payer BC, SELFPAY ==
[2023-07-29 18:23] LABS: Basophils % 1.2 % (0.1-2.0); Eosinophils # 0.3 K/mm3 (0.0-0.4); Eosinophils % 8.1 % (0.1-12.0); Hematocrit 48.8 % (42.0-52.0); Hemoglobin 15.8 g/dL (14.1-18.0); Mean Corpuscular HGB Conc 32.5 g/dL (31.8-35.4); Mean Corpuscular Hemoglobin 34.7 pg (27.0-31.2); Mean Corpuscular Volume 106.9 fl (80-94); Mean Platelet Volume 13.1 fl (7.4-10.4); Monocytes # 0.3 K/mm3 (0.1-1.0); Monocytes % 8.4 % (1.7-9.3); Neutrophils % 54.3 % (37.0-80.0); Red Blood Count 4.56 M/mm3 (4.60-6.20); Red Cell Distribution Width 14.1 % (11.5-17.5); White Blood Count 3.6 K/mm3 (4.8-10.8)
[2023-07-29 18:26] LABS: Alanine Aminotransferase 10 U/L (12-78); Albumin Level 4.1 g/dl (3.5-5.0); Albumin/Globulin Ratio 1.5 (1.1-1.8); Alkaline Phosphatase 46 U/L (38-126); Anion Gap 13.5 mEq/L (5-15); Aspartate Amino Transferase 37 U/L (17-59); Bilirubin,Total 1.7 mg/dl (0.2-1.3); Blood Urea Nitrogen 9 mg/dl (9-20); Calcium 9.6 mg/dl (8.4-10.2); Carbon Dioxide 29 mmol/L (22.0-30.0); Chloride 94 mmol/L (98-107); Chol/HDL Ratio 3.8 (1-3.5); Cholesterol 197 mg/dl (140-200); Estimated Glomerular Filt Rate 98 ml/min (>60); GFR (African American) 119 ML/MIN (>60); Globulin 2.7 g/dL (1.3-3.2); Glucose 67 mg/dl (74-100); HDL Cholesterol 52 mg/dl (40-60); Potassium 3.5 mmoL/L (3.5-5.1); Sodium 133 mmol/L (136-145); Total Protein,Serum 6.8 g/dl (6.3-8.2); Triglycerides 223 mg/dl (30-150); VLDL Cholesterol 45 mg/dL (0-40)
[2023-07-29 18:36] LABS: Platelet Count 28 K/mm3 (142-424)
[2023-07-29 18:37] LABS: Direct LDL Cholesterol 110.44 mg/dL (100-129)
[2023-07-29 19:34] LABS: Vitamin B12 842 pg/mL (239-931)
[2023-07-29 19:40] LABS: Folate > 20.00 ng/mL
== END 2023-07-29 23:59 | disposition home or self-care (01) ==
LOC: LAB.DROPOF 07-30 11:52
PROVIDERS: PCP Internal Medicine; Visit Provider Internal Medicine
DX: R53.83 Other fatigue (principal); Z68.24 Body mass index [BMI] 24.0-24.9, adult
CPT/HCPCS: 80053; 80061; 82607; 82746; 85025

== ENCOUNTER 2023-11-22 12:00 | Outpatient (CLI) | payer BC, SELFPAY ==
[2023-11-22 18:52] LABS: Hemoglobin A1C 5.3 % (4.0-6.0)
[2023-11-22 19:07] LABS: Alanine Aminotransferase 36 U/L (12-78); Alkaline Phosphatase 72 U/L (38-126); Aspartate Amino Transferase 56 U/L (17-59); Bilirubin,Total 0.9 mg/dl (0.2-1.3); Blood Urea Nitrogen 5 mg/dl (9-20); Calcium 9.3 mg/dl (8.4-10.2); Chloride 98 mmol/L (98-107); Chol/HDL Ratio 5.5 (1-3.5); Cholesterol 175 mg/dl (140-200); Estimated Glomerular Filt Rate 114 ml/min (>60); GFR (African American) 138 ML/MIN (>60); Glucose 84 mg/dl (74-100); HDL Cholesterol 32 mg/dl (40-60); Sodium 132 mmol/L (136-145); Total Protein,Serum 6.9 g/dl (6.3-8.2); Triglycerides 238 mg/dl (30-150); VLDL Cholesterol 48 mg/dL (0-40)
[2023-11-22 19:12] LABS: Albumin Level 3.8 g/dl (3.5-5.0); Albumin/Globulin Ratio 1.2 (1.1-1.8); Anion Gap 8.4 mEq/L (5-15); Carbon Dioxide 29 mmol/L (22.0-30.0); Globulin 3.1 g/dL (1.3-3.2); Potassium 3.4 mmoL/L (3.5-5.1)
[2023-11-22 19:20] LABS: Direct LDL Cholesterol 104.86 mg/dL (100-129)
[2023-11-22 21:56] LABS: HIV (1&2) Antibody Rapid NONREACTIVE (NONREACTIVE)
[2023-11-25 05:55] LABS: HBsAg Screen Negative (Negative); HCV Ab Non Reactive (Non Reactive); Hep A Ab, IGM Negative (Negative); Hep B Core Ab, IgM Negative (Negative)
== END 2023-11-22 23:59 | disposition home or self-care (01) ==
LOC: LAB.DROPOF 11-23 13:29
PROVIDERS: PCP Internal Medicine; Visit Provider Internal Medicine
DX: Z13.1 Encounter for screening for diabetes mellitus (principal); Z11.59 Encounter for screening for other viral diseases; R19.7 Diarrhea, unspecified; F10.20 Alcohol dependence, uncomplicated
CPT/HCPCS: 80053; 80061; 80074; 83036; 87389; 87522

== ENCOUNTER 2024-08-03 15:30 | Outpatient (CLI) | payer OTHER, SELFPAY ==
[2024-08-03 18:56] LABS: Basophils # 0.1 K/mm3 (0-0.2); Basophils % 1.2 % (0.1-2.0); Eosinophils # 0.2 Kmm3 (0.0-0.4); Eosinophils % 4.9 % (0.1-12.0); Hematocrit 44.4 % (42.0-52.0); Hemoglobin 14.7 g/dL (14.1-18.0); Immature Granulocytes # 0.01 10^3uL; Immature Granulocytes % 0.2 %; Lymphocytes # 1.2 K/mm3 (0.7-4.5); Lymphocytes % 24.5 % (10-50); Mean Corpuscular HGB Conc 33.1 g/dL (31.8-35.4); Mean Corpuscular Hemoglobin 33.3 pg (27.0-31.2); Mean Corpuscular Volume 100.5 fl (80-94); Monocytes # 0.5 K/mm3 (0.1-1.0); Neutrophils # 2.8 K/mm3 (1.8-7.8); Neutrophils % 58.2 % (37.0-80.0); Nucleated Red Blood Cells # 0 10^3/uL; Nucleated Red Blood Cells % 0 %; Red Blood Count 4.42 M/mm3 (4.60-6.20); Red Cell Distribution Width 12.4 % (11.5-17.5); Red Cell Distribution Width-SD 46.8 fL; White Blood Count 4.9 K/mm3 (4.8-10.8)
[2024-08-03 19:01] LABS: Platelet Count 47 K/mm3 (142-424)
[2024-08-03 19:44] LABS: Alanine Aminotransferase 22 U/L (12-78); Albumin Level 4.6 g/dl (3.5-5.0); Albumin/Globulin Ratio 2.1 (1.1-1.8); Alkaline Phosphatase 63 U/L (38-126); Anion Gap 12.8 mEq/L (5-15); Aspartate Amino Transferase 49 U/L (17-59); Bilirubin,Total 0.7 mg/dl (0.2-1.3); Blood Urea Nitrogen 11 mg/dl (9-20); Calcium 9.2 mg/dl (8.4-10.2); Carbon Dioxide 28 mmol/L (22.0-30.0); Chloride 97 mmol/L (98-107); Estimated Glomerular Filt Rate 85 ml/min (>60); GFR (African American) 103 ML/MIN (>60); Globulin 2.2 g/dL (1.3-3.2); Glucose 79 mg/dl (74-100); Potassium 3.8 mmoL/L (3.5-5.1); Sodium 134 mmol/L (136-145); Total Protein,Serum 6.8 g/dl (6.3-8.2)
[2024-08-03 19:54] LABS: 25-OH Vitamin D, Total 14.3 ng/mL (30-100)
[2024-08-03 20:09] LABS: Free T4 (Free Thyroxine) 1.06 ng/dl (0.78-2.19)
[2024-08-03 20:13] LABS: Thyroid Stimulating Hormone 2.21 uIU/mL (0.465-4.68)
[2024-08-05 05:35] LABS: Hepatitis B Surface Antigen Negative (Negative)
== END 2024-08-03 23:59 | disposition home or self-care (01) ==
LOC: LAB.DROPOF 08-04 13:43
PROVIDERS: PCP Family Medicine; Visit Provider Family Medicine
DX: E03.9 Hypothyroidism, unspecified (principal); K76.9 Liver disease, unspecified; D69.59 Other secondary thrombocytopenia; E87.1 Hypo-osmolality and hyponatremia; F10.20 Alcohol dependence, uncomplicated; E78.5 Hyperlipidemia, unspecified
CPT/HCPCS: 80053; 82306; 84439; 84443; 85025; 87340